=== PATIENT | male | born 1945 | race Caucasian/White ===

== ENCOUNTER 2023-05-13 04:48 | Inpatient (IN) | payer MEDICARE, OTHER, SELFPAY ==
[2023-05-12 21:55] VITALS: BP 154/106
[2023-05-12 22:09] VITALS: BP 164/82
[2023-05-12 22:34] VITALS: BMI 38.2
[2023-05-12 22:34] LABS: % Basophils 0.8 % (0-2); % Immature Granulocytes 3.1 % (0-0.5); % Lymphocytes 29.2 % (20.5-51.1); % Monocytes 9.2 % (1.7-9.3); % Neutrophils 53.7 % (42.2-75.2); Absolute Basophils 0.1 10^3/uL (0-0.2); Absolute Eosinophils 0.4 10^3/uL (0-0.7); Absolute Immature Granulocytes 0.3 10^3/uL (0-0.05); Absolute Monocytes 0.9 10^3/uL (0.1-0.6); Absolute Neutrophils 5.5 10^3/uL (1.4-6.5); Hematocrit 31.4 % (39.0-52.0); Hemoglobin 10.7 g/dL (13.0-18.0); Mean Corp Hgb Conc. 34.1 g/dL (33.0-37.0); Mean Corpuscular Hgb 32.1 pg (27.0-31.0); Mean Corpuscular Volume 94.3 fL (80.0-94.0); Mean Platelet Volume 9.2 fL (7.4-10.4); Nucleated Red Blood Cells % 0 % (-); Platelet Count 396 10^3/uL (130-400); Red Blood Cell Count 3.33 10^6/uL (4.70-6.10); Red Cell Dist. Width 13.4 % (11.5-14.5); White Blood Cell Count 10.2 10^3/uL (4.8-10.8)
--- NOTE | 2023-05-12 22:42 | ED.GENMED ---
History of Present Illness
General
Chief Complaint: Chest Pain
Source: patient
Exam Limitations: none
Time Seen by Provider: 05/12/23 22:10
Travel History
Have you had any contact with someone who has COVID-19?: No
Do you have any symptoms of coronavirus? Fever > 100 degrees, chills, cough, shortness of breath, sore throat, loss of taste or smell, muscle aches, or headache?: No
History of Present Illness
History of Present Illness:
This is a 77 year old male that comes in with c/o chest pain. States that he was getting chest pain across the upper chest but more on the left then the right. State that he had discomfort in both arms but again it was more on the left arm. States
that this started this morning and was on and off all day. States that this happened 3-4 times through the day. Then tonight at 8:15pm he had pain again so he thought he better come in . States that it last maybe 5-10 min. States that he felt
occasionally SOB. Denies any fever, chills, abd pain, nausea, vomiting, diarrhea, headache, dizziness, urinary burning.
Past History
Past History
ED Past Medical History: Cancer (Prostate CA with Radiation), COPD, GERD, HTN, NIDDM and Other (PNA, Hernia, Back pain, )
ED Past Surgical History: Tonsilectomy and Other (Brain Tumor removed, facial reconstruction after dog bite, Hernia repair)
Social History
Tobacco: Former smoker
Alcohol: Occasional
Drug: None
Personal:
Living: alone
Employment: Retired
Family History
Family History: Other (Patient's brother has had angioneurotic edema from IVY inhibitor use.)
Review of Systems
Review of Systems
All Other Systems: ROS reviewed and negative except as documented in HPI and ROS
Constitutional: Reports no symptoms; Denies fever or chills
EENT: Reports no symptoms
Respiratory: Reports trouble breathing; Denies cough
Cardiac: Reports chest pain
ABD/GI: Reports no symptoms; Denies abdominal pain, nausea, vomiting or diarrhea
: Reports no symptoms; Denies dysuria, frequency or urgency
Musculoskeletal: Reports no symptoms
Skin: Reports no symptoms
Neurological: Reports no symptoms; Denies dizzy or headache
Psychiatric: Reports no symptoms
Phy Exam
General Physical Exam
General Presentation: well appearing and no apparent distress
General age: appears stated age
General Skin: warm and dry
General Habitus: elderly
General Mental: alert
General Hydration: appears well hydrated
ENT Exam
ENT Exam: TM's normal, pharynx normal and neck supple
Eye Exam
Eye Exam: EOMI
Cardiovascular Exam
Cardiovascular Exam: regular rate/rhythm and normal peripheral pulses
Pulmonary Exam
Pulmonary Exam: lungs clear, no respiratory distress, no rales, chest non tender, no crackles, no rhonchi, no wheezing and no cough
Gastrointestinal Exam
Gastrointestinal Exam: normal bowel sounds, non tender, soft, no organomegaly, no pulsatile mass, non distended and other (Obese)
Musculoskeletal Exam
Musculoskeletal Exam: full ROM and edema (Slight nonpitting lower leg edema)
Skin Exam
Skin Exam: normal color, warm/dry, no rash and no petechia
Psychiatric Exam
Psychiatric Exam: normal mood/affect
Scores
Heart Score for Chest Pain Patients
STEMI patient?: No
History: Moderately Suspicious
ECG: Normal
Age: >/= 65 years
Risk Factors: 1 or 2 Risk Factors
Troponin: </= Normal Limit
Heart Score for Chest Pain Patients: 4
Heart Score Risk: 20.3% MACE over next 6 weeks
Course
Orders/Labs/Results
Orders:
Orders
05/12/23 21:50
Electrocardiogram (*1) Urgent
Reason for Study: Chest Pain
EKG- Treatment ONCE
05/12/23 22:00
CMP [Comprehensive Metabolic Panel] Urgent
Complete Blood Count/With Diff Urgent
05/12/23 22:27
Troponin I Urgent
05/12/23 22:40
CR Chest - 2 Views Urgent
Comment:
Reason For Exam: cHEST PAIN
05/12/23 22:41
EKG- Treatment ONCE
05/13/23 01:23
Troponin I Urgent
05/13/23 01:25
Electrocardiogram (*1) Urgent
Reason for Study: Chest Pain
Other Reason for Exam: Repeat with Troponin
05/13/23 01:35
Nitroglycerin Sublingual [Nitrostat (Sublingual)] 0.4 mg SL NOW STA
05/13/23 01:40
Aspirin 325 mg PO NOW STA
05/13/23 03:05
Troponin I Urgent
Abnormal Lab Results
05/12/23
22:00
RBC 3.33 L 10^6/uL
(4.70-6.10)
Hgb 10.7 L g/dL
(13.0-18.0)
Hct 31.4 L %
(39.0-52.0)
MCV 94.3 H fL
(80.0-94.0)
MCH 32.1 H pg
(27.0-31.0)
Abs Immat Gran (auto) 0.3 H 10^3/uL
(0-0.05)
Absolute Monos (auto) 0.9 H 10^3/uL
(0.1-0.6)
Immature Gran % 3.1 H %
(0-0.5)
Chloride 109 H mmol/L
(98-107)
Carbon Dioxide 19 L mmol/L
(22-30)
BUN 25 H mg/dl
(9-20)
Creatinine 1.6 H mg/dL
(0.7-1.3)
Glucose 152 H mg/dl
(70-99)
Total Protein 5.9 L g/dl
(6.3-8.2)
05/12/23 22:00
05/12/23 22:00
H/H slightly low. Chloride elevation. carbon dioxide low. Dehydration. Renal insufficiency Glucose nonfasting. Total protein low. Troponin 0.026
Second Troponin 0.032
Third Troponin 0.028
Vital Signs
Initial and Last Documented VS:
Initial Vital Signs
Temp Pulse Resp BP Pulse Ox
97.8 F 103 24 154/106 97
05/12/23 21:55 05/12/23 21:55 05/12/23 21:55 05/12/23 21:55 05/12/23 21:55
Last Documented Vital Signs
Temp Pulse Resp BP Pulse Ox
97.8 F 92 16 143/78 97
05/12/23 21:55 05/13/23 02:15 05/13/23 02:15 05/13/23 02:00 05/12/23 21:55
MDM/Problems Addressed
Differential Diagnosis Includes:
CAD, Angina
MDM/Problems Addressed:
This is a 77 year old male that comes in with c/o chest pain that has been coming and going all day. States that he has no pain now but the last time it was at 8:15pm and this last about 5-10 min.
Will check labs. Troponin and chest x-ray.
Repeat ECG Rate 91, NSR, Left axis. Right BBB, Unchanged from prior. Patient at this time states that his chest discomfort and left arm pain came back. Patient was given nitro and right away he stated that his pain was already gone. Unsure if the
nitro even had any time to work. Second Troponin is pending.
Back into see patient. Explained that his Troponin is continuing to rise. Will patient c/o chest pain and arm pain, will repeat Troponin at 3am and admit patient. Patient can see Loom Inspector in the morning. Hospitalist notified.
Chronic conditions affecting care: COPD and Other (GERD)
Acute Exacerbation and/or Progression of Chronic Illness: COPD
*Radiology
Radiology exam reviewed: preliminary read by ED provider (Chest- No acute process of the chest noted)
*Pulse Oximetry
Patient hypoxic: no
*EKG
Interpreted by ED Provider?: Yes
Heart Rate: 98
Rate: normal
Rhythm: sinus
[place]: left axis deviation
Interval: normal interval
QRS Pattern: right bundle branch block
Ischemia: no ischemia
*Pulverizer Mill Operator Interpretation
Rate: normal
Heart Rate: 97
Rhythm: sinus
*Critical Care Note
Total Time (30-74mins, 75-104mins- exclusive of procedures): Not Applicable
ED Attending Note
-
Portions of this chart may have been created with voice recognition software.� Occasional wrong word or��sound alike� substitutions may have occurred due to the inherent limitations of voice recognition software.
Discharge Plan
Departure
Patient Disposition: Admit
Date of Disposition: 05/13/23
Time of Disposition: 02:10
Admit to: Telemetry
Presentation/result/management discussed w/ accepting MD/DO: Hospitalist
Patient with high blood pressure during this ER visit?: Yes
Condition: Good
Covid-19: Not Applicable
Discharge Problem:
Chest pain
Prescriptions:
No Action
allopurinol 300 MG tablet
300 mg PO DAILY
omeprazole 20 mg Tablet,Delayed Release (Dr/Ec)
20 mg PO DAILY
glimepiride 4 MG tablet
4 mg PO BID
hydrochlorothiazide 12.5 MG capsule
12.5 mg PO DAILY
Hold Instructions: Resume on 09/11/22.
albuterol sulfate [Ventolin HFA] 90 MCG/PUFF HFA aerosol inhaler
2 puff inhalation R Q6HPRN PRN (Reason: sob)
metformin 500 MG tablet extended release 24 hr
500 mg PO BID
irbesartan 300 MG tablet
300 mg PO DAILY
Hold Instructions: Resume on 09/11/22.
amlodipine 10 MG tablet
10 mg PO DAILY
atorvastatin [Lipitor] 20 mg Tablet
20 mg PO QPM
therapeutic multivitamin Tablet
1 tab PO DAILY
montelukast [Singulair] 10 mg Tablet
10 mg PO QPM
Primatene Mist 0.125 mg/actuation Hfa Aerosol Inhaler
1 puff INHALATION R Q4HPRN PRN (Reason: SOB)
ipratropium-albuterol 0.5 mg-3 mg(2.5 mg base)/3 mL Solution For Nebulization
3 ml inhalation R Q4HPRN PRN (Reason: wheezing) Qty: 120 0RF
azithromycin 250 mg Tablet
500 mg PO DAILY Qty: 6 0RF
guaifenesin 600 mg Tablet Extended Release 12hr
600 mg PO Q12 Qty: 30 0RF
prednisone 5 mg tablets,dose pack
5 mg PO DIRECTED Qty: 21 0RF
Referrals:
Sd Barros IV, MD [Family Provider] -
Interventions
Interventions:
*Risk Screen - Suicide Last Done: 05/12/23 21:55
*General Assessment Last Done: 05/12/23 21:55
*Neglect/Abuse Screening Last Done: 05/12/23 21:55
*ED COVID-19 Vaccine History Last Done: 05/12/23 21:55
ED- Cardiac Assessment Last Done: 05/12/23 22:22
[2023-05-12 22:48] LABS: ALT (SGPT) 13 U/L (0-50); AST (SGOT) 17 U/L (17-59); Albumin 3.5 g/dl (3.5-5.0); Alkaline Phosphatase 82 U/L (38-126); Blood Urea Nitrogen 25 mg/dl (9-20); Calcium 8.4 mg/dl (8.4-10.2); Carbon Dioxide 19 mmol/L (22-30); Chloride 109 mmol/L (98-107); Estimated Creatinine Clearance 44 ml/min; Glucose 152 mg/dl (70-99); Potassium 4.5 mmol/L (3.5-5.1); Sodium 136 mmol/L (135-145); Total Bilirubin 0.4 mg/dl (0.2-1.3); Total Protein 5.9 g/dl (6.3-8.2); eGFR 44.38
[2023-05-12 23:00] VITALS: BP 144/71
[2023-05-12 23:00] LABS: Troponin I 0.026 ng/ml
[2023-05-12 23:20] VITALS: BP 144/93
[2023-05-13] VITALS (25 sets, daily range): BP systolic 77–161; BP diastolic 57–112; BMI 35.3
[2023-05-13] MEDS: NITROSTAT (SUBLINGUAL) 0.400000000000000022 MG SL (01:37)
[2023-05-13] MEDS: ASPIRIN 325 MG PO (01:44)
[2023-05-13 01:51] LABS: Troponin I 0.032 ng/ml
[2023-05-13 03:50] LABS: Troponin I 0.028 ng/ml
--- NOTE | 2023-05-13 04:03 | HPS.HSE ---
Family Physician
-
Family Physician: Sd Barros IV, MD
Chief Complaint
-
Chest Pain
History of Present Illness
Patient is a 77y M with PMH significant for hypertension and DM-II who presents to ED complaining of chest pain. Patient states that he first noted some mild L-sided chest pain early Thursday AM. His pain has steadily increased in frequency and
severity throughout the day. Patient states that pain is a 'heaviness' or 'pressure' that is in the center of the chest and radiates to the L including into the LUE. He denies any jaw pain or nausea. He admits to associated SOB. No prior history
of similar symptoms. No prior IL, CVA, etc.
Patient is followed by a Returned Item Clerk at [facility] who he started seeing at age 76 'just because'.
Patient denies any recent medication changes, etc.
He recently had work done in his home (new natural gas boiler installed, old oil tanker removed) and has been cleaning up at home over this past weekend.
In the ED, patient continues to have paroxysms of evident discomfort with tightness in the chest and into the L arm.
Medical History
Past Medical History
Past Medical History: Reports Other
Additional Past Medical History:
Hypertension
DM-II
Obesity
COPD
Gout
GERD
Past Surgical History: Reports Other
Additional Past Surgical History:
Herniorrhaphy
Social History
Tobacco: Former Smoker (Quit smoking 5 years ago. > 50 pack years total use.)
Alcohol: Occasional
Drug: None
Living: Alone
Family History
Family History: Other (Mother: Dementia, Longevity Father: CHF)
Allergies / Home Medications
Allergies reflects when Allergies were last updated in [employer].
Home Medications with original date entered in [employer]
Allergy/Medication List:
Allergies
Allergy/AdvReac Type Severity Reaction Status Date / Time
No Known Allergies Allergy Verified 09/03/22 09:56
Home Medications
allopurinol 300 mg tablet 300 mg PO DAILY Gout 11/11/12
omeprazole 20 mg tablet,delayed release 20 mg PO DAILY Gastrointestinal Issue 11/11/12
amlodipine 10 mg tablet 10 mg PO DAILY Blood Pressure 08/29/17
glimepiride 4 mg tablet 4 mg PO DAILY Diabetes 08/29/17
hydrochlorothiazide 12.5 mg capsule 12.5 mg PO DAILY Blood Pressure 08/29/17
irbesartan 300 mg tablet 300 mg PO DAILY Blood Pressure 08/29/17
metformin 500 mg tablet,extended release 24 hr 500 mg PO BID Diabetes 08/29/17
epinephrine 0.125 mg/actuation aerosol inhaler (Primatene Mist) 1 puff inhalation R Q4HPRN PRN SOB 09/03/22
montelukast 10 mg tablet (Singulair) 10 mg PO QPM Allergies 09/03/22
Review of Systems
-
History Source: Patient
A 12 point ROS was completed and negative except as noted: Yes
Constitutional: Denies Fever or Chills
EENT: Denies Sore Throat
Respiratory: Reports Trouble Breathing; Denies Cough
Cardiac: Reports Chest Pain; Denies Diaphoresis or Palpitations
Abdomen/GI: Denies Abdominal Pain, Nausea, Vomiting or Diarrhea
: Denies Dysuria or Frequency
Musculoskeletal: Reports Joint Pain (Arm pain.)
Neurological: Denies Dizzy or Headache
Psych: Denies Depression or Anxiety
Physical Exam
Vital Signs
Vital Signs
Temp Pulse Resp BP Pulse Ox
97.8 F 92 16 143/78 97
05/12/23 21:55 05/13/23 02:15 05/13/23 02:15 05/13/23 02:00 05/12/23 21:55
Physical Exam
General: Other (77y M in mild distress due to chest pain / LUE pain.)
HEENT: Moist mucous membranes and PERRLA
Respiratory: Clear; No Wheezes, Rales or Rhonchi
Cardiac: S1/S2 and Regular Rhythm; No Murmur
GI: Soft, Non Tender, Non Distended and Normal Bowel Sounds
Musculoskeletal: No Clubbing, No Cyanosis and No Edema
Neuro: AO x 3
Laboratory Results
-
05/12/23 22:00
Laboratory Results
Total Bilirubin 0.4 mg/dl (0.2-1.3) 05/12/23 22:00
AST 17 U/L (17-59) 05/12/23 22:00
ALT 13 U/L (0-50) 05/12/23 22:00
Alkaline Phosphatase 82 U/L (38-126) 05/12/23 22:00
Troponin I 0.028 ng/ml 05/13/23 03:05
Impression/Plan
-
A/P: Patient is a 77y M with PMH significant for HTN and DM-II who presents to ED complaining of chest pain.
Chest Pain
- Admit for further evaluation and treatment.
- Patient with very good story for ACS with chest heaviness into the L arm.
- Multiple risk factors for CAD.
- EKG shows RBBB without obvious ischemia.
- Troponin is non-negative and trending upwards.
- Begin IV heparin and IV NTG and titrate for pain free.
- Cardiology evaluation.
- Continue daily ASA. Add low-dose beta-shandra.
- Hold on initiation of statin for now - patient reports prior intolerance.
- Follow for any new / recurrent symptoms.
Benign Hypertension
- Stable. Hold ARB acutely.
- Begin metoprolol as noted above.
- IV NTG for pain.
- Adjust med regimen as needed for BP control.
DM-II
- Stable. Hold PO med regimen.
- Follow glucose and cover with SSI as needed.
- Update A1C.
COPD without Acute Exacerbation
- No wheezing on exam.
- Patient takes Singulair and uses only Primatene mist as a rescue inhaler.
- Continue Singulair. Albuterol PRN.
Obesity due to excess calories
- Affects all aspects of care including risk of heart disease.
- Encourage healthy diet and increase exercise as tolerated with goal of weight loss.
DVT Prophylaxis: On IV Heparin
Code Status: Full
[2023-05-13] MEDS: NITROGLYCERIN PREMIX 250 IV (04:34)
[2023-05-13] MEDS: HEPARIN 4000 UNITS IV (04:39)
[2023-05-13] MEDS: HEPARIN 25000 UNITS/250 ML IV (04:43)
[2023-05-13 05:01] LABS: Hematocrit 31.8 % (39.0-52.0); Mean Corp Hgb Conc. 34.6 g/dL (33.0-37.0); Mean Corpuscular Hgb 32.4 pg (27.0-31.0); Mean Corpuscular Volume 93.5 fL (80.0-94.0); Mean Platelet Volume 9.1 fL (7.4-10.4); Platelet Count 368 10^3/uL (130-400); Red Cell Dist. Width 13.7 % (11.5-14.5); White Blood Cell Count 10.3 10^3/uL (4.8-10.8)
--- NOTE | 2023-05-13 06:32 | PTCARENOTE ---
received patient from ED into room 2246. Patient ambulated self to bed w/out difficulty. Denies any dizziness. Patient AAOx3, VSS, and sating 99% RA. Tele monitor applied pt SR w/ BBBC. Morning EKG and blood work obtained per order. IV Heparin gtt
infusing at 10ml/hr, and IV nitroglycerin infusing at 5mcg/min. Patient denies any chest pain or discomfort. Patient oriented to room, call donaldson within reach.
[2023-05-13 06:55] LABS: Troponin I 0.034 ng/ml
[2023-05-13 07:11] LABS: Glucose - Point of Care 113 mg/dl (70-99)
[2023-05-13 07:16] LABS: ALT (SGPT) 12 U/L (0-50); AST (SGOT) 19 U/L (17-59); Alkaline Phosphatase 80 U/L (38-126); Blood Urea Nitrogen 27 mg/dl (9-20); Calcium 8.5 mg/dl (8.4-10.2); Carbon Dioxide 22 mmol/L (22-30); Chloride 106 mmol/L (98-107); Direct Bilirubin 0.5 mg/dl (0.0-0.4); Estimated Creatinine Clearance 45 ml/min; Glucose 117 mg/dl (70-99); HDL Cholesterol 55 mg/dl; LDL Cholesterol, Calculated 111 mg/dl; Magnesium 1.5 mg/dl (1.6-2.3); Sodium 138 mmol/L (135-145); Total Bilirubin 0.5 mg/dl (0.2-1.3); Total Cholesterol 185 mg/dl (50-199); Total Protein 5.3 g/dl (6.3-8.2); Triglyceride 96 mg/dl (10-149); Very Low Density Lipoprotein 19 mg/dl (0-30); eGFR 44.38
[2023-05-13] MEDS: NOVOLOG FLEXPEN-LOW RESISTANCE SC ×3 (07:55→17:46)
[2023-05-13] MEDS: TOPROL XL 12.5 MG PO ×2 (07:55→20:43)
[2023-05-13] MEDS: PROTONIX 40 MG PO (07:55)
[2023-05-13] MEDS: ZYLOPRIM 300 MG PO (07:55)
--- NOTE | 2023-05-13 08:53 | CON.CAR ---
Addendum entered and electronically signed by Xiomara Edwards MD 05/13/23 10:11:
I saw and examined the patient.
The Language Tutor's note was reviewed and I agree with the note.
Comment: Patient presents with chest pain which sounds typical for angina. He has cardiovascular risk factors. Currently on heparin and nitrates. We discussed at great length coronary artery disease and proceeding with cardiac catheterization.
He has not let his family know that he is currently in the hospital and he will do so. He is considering proceeding with cardiac catheterization and we will check back today. If he is agreeable likely proceed tomorrow. Continue to modify
cardiovascular risk factors.
-Cardiac catheterization if agreeable tomorrow
-Continue IV nitrates and heparin
-If not agreeable for cardiac catheterization would transition to oral antianginal regimen
-Await lipids and start lipid-lowering
-Echo pending
-Renal insufficiency noted
-Blood pressure mildly elevated. Agree with beta-shandra. Hold irbesartan. Resume half dose of amlodipine and follow.
Original Note:
Consultation
Consultation Request
Date/Time Consultation Requested: 05/13/23 at 0520
Date/Time Consultation Performed: 05/13/23 at 0740
Requesting Provider: Dr. Holliday
Performing Provider: Dr. Xiomara Edwards
Reason for Consultation: Chest pain
Medical History
-
History of Present Illness:
Patient came to [facility] last night with chest pain and cardiology has been consulted. Patient describes chest pain at rest starting yesterday. Pain is substernal and radiates to his left arm. Pain lasted 5 minutes and resolved without specific
intervention. Pain recurred 2 hours later and lasted 10 minutes before again resolving. Pain recurred again hours later and then lasted 15 minutes. Patient says that an episode late last night was then worst he experienced all day and lasted for
close to an hour so he asked his neighbor to drive him to [facility]. Pain relieved with NTG SL x1 in the ER. Pain recurred an hour later and he was started on a Nitro gtt and pain has not recurred since then. Patient was also started on a Heparin gtt.
Patient reports following with a commander internal affairs associated with [facility]. Patient says that he initially saw cardiology for pre-op cataract clearance for an abnormal ECG about 3 years ago and has continued with every 6 months visits since then, but
has never had chest pain or a stress test.
PMH:
HTN
DM 2
COPD
Obese, BMI 35.3
Past Medical History
Past Medical History: Other (in HPI)
Past Surgical History: Tonsilectomy and Other (hernia repair, brain tumor resection unknown date)
Social History
Tobacco: Former Smoker
Alcohol: Occasional
Personal:
Living: Alone
Family History
Family History: Hypertension
Allergies / Home Medications
Allergy/AdvReac Type Severity Reaction Status Date / Time
No Known Allergies Allergy Verified 09/03/22 09:56
Medication Instructions Recorded Confirmed Type
allopurinol 300 mg tablet 300 mg PO DAILY Gout 11/11/12 05/13/23 History
omeprazole 20 mg tablet,delayed 20 mg PO DAILY Gastrointestinal 11/11/12 05/13/23 History
release Issue
amlodipine 10 mg tablet 10 mg PO DAILY Blood Pressure 08/29/17 05/13/23 History
glimepiride 4 mg tablet 4 mg PO DAILY Diabetes 08/29/17 05/13/23 History
hydrochlorothiazide 12.5 mg capsule 12.5 mg PO DAILY Blood Pressure 08/29/17 05/13/23 History
irbesartan 300 mg tablet 300 mg PO DAILY Blood Pressure 08/29/17 05/13/23 History
metformin 500 mg tablet,extended 500 mg PO BID Diabetes 08/29/17 05/13/23 History
release 24 hr
epinephrine 0.125 mg/actuation 1 puff inhalation R Q4HPRN PRN SOB 09/03/22 05/13/23 History
aerosol inhaler (Primatene Mist)
montelukast 10 mg tablet 10 mg PO QPM Allergies 09/03/22 05/13/23 History
(Singulair)
Review of Systems
-
History Source: Patient
All other systems: Negative unless noted
Physical Exam
Vital Signs
Temp Pulse Resp BP Pulse Ox
98 F 96 18 146/83 99
05/13/23 07:06 05/13/23 07:06 05/13/23 07:06 05/13/23 05:23 05/13/23 07:06
GEN: NAD. AAOx3
HEENT: EOMI, MMM
LUNGS: CTA B/L, no wheezes or rales
CV: Reg, S1/S2, no murmur
ABD: soft, BS+, NT, ND
EXT: Trace B/L LE edema. No clubbing, cyanosis or lesions B/L
NEURO: Gross non-focal
SKIN: Warm, dry and pink. No rash
Lab Results
05/13/23 06:00
05/13/23 06:14
Troponin I 0.034 ng/ml 05/13/23 06:14
Impression / Plan
-
PCP: Dr. Sd Barros
Cardiology: Affiliated with [facility], but he cannot recall the name
Impression:
Chest pain, [place]
Detectable, but normal Troponin levels serially
Abnormal ECG with baseline RBBB and inferior ST changes
HTN
DM 2
COPD
Obese, BMI 35.3
Echo 05/13/23: Study pending
Plan:
-Patient came to [facility] last night with chest pain and cardiology has been consulted. Patient describes chest pain at rest starting yesterday. Pain is substernal and radiates to his left arm. Pain lasted 5 minutes and resolved without specific
intervention. Pain recurred 2 hours later and lasted 10 minutes before again resolving. Pain recurred again hours later and then lasted 15 minutes. Patient says that an episode late last night was then worst he experienced all day and lasted for
close to an hour so he asked his neighbor to drive him to [facility]. Pain relieved with NTG SL x1 in the ER. Pain recurred an hour later and he was started on a Nitro gtt and pain has not recurred since then. Patient was also started on a Heparin gtt.
Patient reports following with a commander internal affairs associated with [facility]. Patient says that he initially saw cardiology for pre-op cataract clearance for an abnormal ECG about 3 years ago and has continued with every 6 months visits since then, but
has never had chest pain or a stress test.
-Patient describing [place] pattern and has a h/o HTN, DM 2 and former smoker. Talked with patient about risk factors for CAD and concerning chest pain story and he is agreeable to cardiac cath today.
-ECG reviewed by me with baseline RBBB and inferior ST changes.
-Renewed Heparin gtt and Nitro gtt. Patient is pain free.
-Check echo
-Continue to trend Troponin
-Check CVE
-Start atorvastatin 40 mg daily
-Patient was not taking an aspirin prior to admission, but this is now ordered
[2023-05-13 09:33] LABS: Glycohemoglobin (HgbA1c) 6.9 % (4.0-5.6)
--- NOTE | 2023-05-13 09:37 | W.PN.HOSP.TC ---
Today's Communication/Plan
-
see A/P
Assessment / Plan
Assessment / Plan
Patient is a 77y M with PMH significant for hypertension and DM-II who presented to ED complaining of chest pain.�Patient states that he first noted some mild L-sided chest pain early Thursday AM.� His pain has steadily increased in frequency and
severity throughout the day. Patient states that pain is a 'heaviness' or 'pressure' that is in the center of the chest and radiates to the L including into the LUE. He denies any jaw pain or nausea.�He admits to associated SOB.� No prior history of
similar symptoms.� No prior [place], CVA, etc.
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
Patient denies any recent medication changes, etc.
He recently had work done in his home (new natural gas boiler installed, old oil tanker removed) and has been cleaning up at home over this past weekend.
In the ED, patient continues to have paroxysms of evident discomfort with tightness in the chest and into the L arm.
A/P:
# Chest Pain/chest heaviness into the L arm, admit to r/o ACS
Multiple risk factors for CAD.
EKG shows RBBB without obvious ischemia.
Troponin is non-negative and trending upwards.
Check echo
Cont IV heparin and IV NTG
Cardiology evaluation.
Continue daily ASA.� Added low-dose beta-shandra Toprol 12.5 mg BID
Lipitor started by card
Follow for any new / recurrent symptoms.
# CKD stage 3
Follow SCr
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
# Benign Hypertension�- Stable.�
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
Begin metoprolol as noted above.
IV NTG for pain.
Adjust med regimen as needed for BP control.
# DM-II- Stable.�
Hold PO med regimen.
Follow glucose and cover with SSI as needed.
Update A1C.
# COPD without Acute Exacerbation
No wheezing on exam.
Patient takes Singulair and uses only Primatene mist as a rescue inhaler.
Continue Singulair.� Albuterol PRN.
# Obesity due to excess calories
Affects all aspects of care including risk of heart disease.
Encourage healthy diet and increase exercise as tolerated with goal of weight loss.
DVT Prophylaxis:� On IV Heparin
Code Status:� Full
called brother to update, call not answered
Anticipated Discharge: 24 - 48 hours
Subjective/Interval History
-
Date of Service: May 13, 2023
Objective Data
-
Labs:
Laboratory Results
05/12/23 05/13/23 05/13/23
22:00 04:49 06:00
WBC 10.2 10.3 Cancelled
Hgb 10.7 L 11.0 L Cancelled
Hct 31.4 L 31.8 L Cancelled
Plt Count 396 368 Cancelled
APTT 61.0 H
Sodium 136
Potassium 4.5
Chloride 109 H
Carbon Dioxide 19 L
BUN 25 H
Creatinine 1.6 H
Glucose 152 H
Calcium 8.4
Total Bilirubin 0.4
AST 17
ALT 13
Alkaline Phosphatase 82
05/13/23 05/13/23
06:14 10:45
WBC
Hgb
Hct
Plt Count
APTT Pending
Sodium 138
Potassium 4.0
Chloride 106
Carbon Dioxide 22
BUN 27 H
Creatinine 1.6 H
Glucose 117 H
Calcium 8.5
Total Bilirubin 0.5
AST 19
ALT 12
Alkaline Phosphatase 80
Vital Signs:
Vital Signs
Temp Pulse Resp BP Pulse Ox
36.6 C 96 18 146/83 99
05/13/23 07:06 05/13/23 07:06 05/13/23 07:06 05/13/23 05:23 05/13/23 07:06
Review of Systems
-
All other systems: Reviewed and negative
Cardiac: Denies Chest Pain (much resolved )
Physical Exam
-
General: Well Developed, Well Nourished, No Apparent Distress, Comfortable, Conversant and Obese; Negative Respiratory Distress
HEENT: Normocephalic, Atraumatic, Nose Appears Normal and Ears Appear Normal; Negative Oxygen
Respiratory: Clear to Auscultation and Non Labored Respirations; Negative Accessory Resp Muscle Use
Cardiac: Regular Rhythm and S1/S2
GI: Soft, Nontender, Nondistended and Normal Bowel Sounds
Skin: Warm and Dry
Neuro: Awake, Alert, Oriented and AO x 3
Psych: Calm and Intact Judgement/Insight
Data Reviewed
-
Labs: Labs Reviewed by me
[2023-05-13 11:47] LABS: APTT 38.2 Sec (23.4-35.0)
[2023-05-13 12:00] LABS: Troponin I 0.075 ng/ml
[2023-05-13 12:15] LABS: Glucose - Point of Care 111 mg/dl (70-99)
--- NOTE | 2023-05-13 12:32 | W.PN.UPDATE ---
Addendum entered and electronically signed by Lexis Santacruz PA-C 05/13/23 17:04:
Called back to see patient for another episode of chest pain. He was seated in a chair when pain started. Nursing increased Nitro gtt from 10 mcg to 20 mcg. Pain resolved quickly. Patient now in bed. BP 139/51. MATTHEW earlier that was relieved by
Tylenol. Plan is for cath today.
Original Note:
Update Note
Progress Note Update
CTSP for chest pain. Patient was seated in chair with Nitro gtt running at 5 when he started with chest pain. This was his first recurrence of chest pain following initiation of Nitro gtt in ER. Nitro gtt increased to 10 and patient pain free.
Troponin trended up from 0.034 to 0.075. Talked with patient, his son and daughter in law. Reviewed admission thus far and concerns for [facility]. Patient now says that he is agreeable to cath. Pain free at present on Nitro gtt at 10 and Heparin gtt. Will
add to cath schedule. Spent 31 minutes reviewing chart, talking with family and coordinating ongoing care.
--- NOTE | 2023-05-13 12:53 | PTCARENOTE ---
Pt c/o /10 heaviness in his chest, BP 153/77, NTG drip increased to 10 mcg/min. Pt pain lasted only briefly. Lexislang Santacruz aware.
[2023-05-13] MEDS: LOW STRENGTH ASPIRIN 81 MG PO (12:59)
[2023-05-13] MEDS: NORVASC 5 MG PO (13:00)
--- NOTE | 2023-05-13 13:31 | CM ---
Chart reviewed. Patient is waiting on a LH. Patient is independent of ADLS, lives alone in a 2 [address], 3 MARIE, 0 DME. Patient not current with VN, but is interested. I will place a referral to [facility]. Plan is for the patient to return home with
VN. CM to follow
[2023-05-13] MEDS: TYLENOL 650 MG PO (14:32)
[2023-05-13 17:08] LABS: Glucose - Point of Care 118 mg/dl (70-99)
[2023-05-13 17:52] LABS: ACT-LR - POC 200 Seconds (116-155)
[2023-05-13 17:59] LABS: ACT-LR - POC 269 Seconds (116-155)
[2023-05-13 18:17] LABS: ACT-LR - POC 287 Seconds (116-155)
--- NOTE | 2023-05-13 18:57 | ITS.CL.CATH ---
[facility] - Catheterization
Cardiac Catheterization
Procedure Report:
LEFT HEART CATHETERIZATION AND CORONARY INTERVENTION
Date of Procedure: May 13, 2023
Referring: Xiomara Edwards
PROCEDURES:
1. Left heart catheterization, coronary angiogram.
2. Ultrasound-guided access.
3. Successful percutaneous coronary intervention of the 80% distal RCA stenosis with a 4.0 x 23 mm Xience pasquale point drug-eluting stent, postdilated with a 4.5 x 20 mm NC balloon at 18 zion with an excellent angiographic result.
INDICATION: NSTEMI
ACCESS: Right radial artery, 6 Bruneian sheath, under ultrasound guidance
HEMODYNAMICS : (mmHg)
AO (s/d) : 127/76
LV (s/d) : 126/9
LVEDP : 12
CORONARY FINDINGS
DOMINANCE: Right
LEFT MAIN: Left main artery is a large-caliber vessel which gives rise to a left anterior descending artery and the left circumflex artery. There is minimal luminal irregularities.
LEFT ANTERIOR DESCENDING: The left into descending artery is a medium to large caliber vessel which gives rise to 1 major diagonal branch. There is 30 to 40% eccentric mid LAD stenosis at the level of the takeoff of a branching diagonal.
Otherwise, there is mild diffuse atherosclerotic plaque.
CIRCUMFLEX: The left circumflex artery is a medium caliber vessel which gives rise to 2 small to medium caliber obtuse marginal branches. There is 20% ostial left circumflex stenosis and otherwise minimal luminal irregularities.
RIGHT CORONARY ARTERY: The right coronary artery is a large-caliber, dominant vessel which gives rise to the right posterior descending artery and the right posterolateral system. There is a smooth tubular 80% distal RCA stenosis which was thought
to be the culprit for presenting NSTEMI.
CORONARY INTERVENTION: Decision was made to move forward with percutaneous intervention of distal RCA stenosis. Additional heparin was given to maintain a therapeutic ACT throughout the case. A 6 Bruneian JR4 guide catheter was utilized to
selectively engage with the RCA. A 190 cm 0.14' BMW coronary wire was successfully advanced across the distal RCA stenosis into the large RPL branch. The lesion was predilated using a 3.5 x 12 mm Trek semi-compliant balloon at 14 zion with full
expansion. The lesion was subsequently stented using a 4.0 x 23 mm Xience pasquale point drug-eluting stent and postdilated using a 4.5 x 20 mm NC trek balloon at 18 zion with excellent angiographic result and LUCY-3 flow into the distal branches. 0%
residual stenosis was noted. Patient was loaded with 180 mg of Brilinta at the end of the case. No acute complications.
RADIATION SUMMARY: Fluoro Time (min): 11.1, Dose (mGy): 646.14, DAP (Gy.cm2) : 58.7
Closure Device: Vascular band over right radial artery, 11 cc of air.
CONCLUSIONS
1. Successful percutaneous coronary intervention of the 80% distal RCA stenosis with a 4.0 x 23 mm Xience pasquale point drug-eluting stent, postdilated with a 4.5 x 20 mm NC balloon at 18 zion with an excellent angiographic result.
2. Otherwise nonobstructive coronary artery disease.
3. Normal LVEDP.
RECOMMENDATIONS
1. Uninterrupted dual antiplatelet therapy with daily baby aspirin and Brilinta 90 mg twice daily along with a high intensity statin and beta-shandra as tolerated in the setting of acute coronary syndrome.
2. Aggressive management of cardiovascular risk factors.
3. Wean radial band per protocol.
4. Referral for outpatient cardiac rehab.
Copy to: Xiomara Edwards
Cuca Fountain MD, [facility], [facility]
--- NOTE | 2023-05-13 19:38 | PTCARENOTE ---
Addendum entered by Merced Conway RN 05/13/23 19:40:
Pt c/o CP at 1630
Original Note:
Pt c/o 10/20 chest heaviness again, EKG done, NTG increased to 20mcg. Lexis Santacruz aware and came to see Pt. Pt awaiting cardiac cath. His pain was gone after 10 minutes.
[2023-05-13] MEDS: SINGULAIR 10 MG PO (20:43)
[2023-05-13] MEDS: LIPITOR 40 MG PO (20:43)
[2023-05-13 21:35] LABS: Glucose - Point of Care 201 mg/dl (70-99)
[2023-05-14] VITALS (7 sets, daily range): BP systolic 131–147; BP diastolic 70–87; PULSE 106–110; O2SAT 96
--- NOTE | 2023-05-14 04:49 | PTCARENOTE ---
Pt without CP complaints this shift- R radial dressing CDI+ radial pulse. SR/ST BBB on the monitor. Pt @ times- complaining of SOB- SPO2 ranged from 98-100% on RA. b/l lung sounds diminished- Pt reports ' he has COPD, it is probably just my
anxiety'. PRN NEB treatment offered and pt made aware he can ask if he feels he needs it- he declines at this time. call donaldson within reach- pt ambulating the room as a self.
[2023-05-14 05:12] LABS: Hematocrit 31.5 % (39.0-52.0); Hemoglobin 10.6 g/dL (13.0-18.0); Mean Corp Hgb Conc. 33.7 g/dL (33.0-37.0); Mean Corpuscular Hgb 32.4 pg (27.0-31.0); Mean Corpuscular Volume 96.3 fL (80.0-94.0); Mean Platelet Volume 9.4 fL (7.4-10.4); Platelet Count 383 10^3/uL (130-400); Red Blood Cell Count 3.27 10^6/uL (4.70-6.10); Red Cell Dist. Width 13.3 % (11.5-14.5); White Blood Cell Count 10.3 10^3/uL (4.8-10.8)
[2023-05-14 05:32] LABS: Blood Urea Nitrogen 24 mg/dl (9-20); Calcium 9.1 mg/dl (8.4-10.2); Carbon Dioxide 23 mmol/L (22-30); Chloride 105 mmol/L (98-107); Estimated Creatinine Clearance 40 ml/min; Glucose 124 mg/dl (70-99); Magnesium 1.5 mg/dl (1.6-2.3); Potassium 4.7 mmol/L (3.5-5.1); Sodium 136 mmol/L (135-145); eGFR 38.53
[2023-05-14 07:48] LABS: Glucose - Point of Care 157 mg/dl (70-99)
[2023-05-14] MEDS: BRILINTA 90 MG PO (08:34)
[2023-05-14] MEDS: LOW STRENGTH ASPIRIN 81 MG PO (08:34)
[2023-05-14] MEDS: TOPROL XL 12.5 MG PO (08:34)
[2023-05-14] MEDS: NORVASC 5 MG PO (08:35)
[2023-05-14] MEDS: PROTONIX 40 MG PO (08:35)
[2023-05-14] MEDS: ZYLOPRIM 300 MG PO (08:35)
--- NOTE | 2023-05-14 08:39 | W.PN.HOSP.TC ---
Addendum entered and electronically signed by Marilyn Holliday MD 05/14/23 14:44:
total DC time 35 min
Original Note:
Today's Communication/Plan
-
see A/P
Assessment / Plan
Assessment / Plan
Patient is a 77y M with PMH significant for hypertension and DM-II who presented to ED complaining of chest pain.�Patient states that he first noted some mild L-sided chest pain early Thursday.� His pain has steadily increased in frequency and
severity throughout the day. Patient states that pain is a 'heaviness' or 'pressure' that is in the center of the chest and radiates to the L including into the LUE. He denies any jaw pain or nausea.�He admits to associated SOB.� No prior history of
similar symptoms.� No prior [place], CVA, etc.
Patient is followed by a Club Lounge Attendant at [place] who he started seeing at age 76 'just because'.
Patient denies any recent medication changes, etc.
He recently had work done in his home (new natural gas boiler installed, old oil tanker removed) and has been cleaning up at home over this past weekend.
In the ED, patient continues to have paroxysms of evident discomfort with tightness in the chest and into the L arm.
A/P:
# Chest Pain/chest heaviness due to ACS
EKG shows RBBB without obvious ischemia.
Troponin is non-negative and trending upwards.
Echo unrevealing: EF 55-60%.�Normal diastolic function.�
s/p IV heparin and IV NTG
s/p cath 05/13: noted 80% distal RCA stenosis s/p PCI
Cont DAPT aspirin and Brilinta
Cont high intensity statin Lipitor
Cont newly added beta-shandra Toprol 12.5 mg BID
# CKD stage 3
Follow SCr
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
# Benign Hypertension�- Stable.�
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
Started metoprolol as noted above.
Adjust med regimen as needed for BP control.
# DM-II- Stable.�
Hold PO med regimen.
Follow glucose and cover with SSI as needed.
A1C 6.9%
# COPD without Acute Exacerbation
No wheezing on exam.
Patient takes Singulair and uses only Primatene mist as a rescue inhaler.
Continue Singulair.�Albuterol PRN.
# Obesity due to excess calories
Affects all aspects of care including risk of heart disease.
Encourage healthy diet and increase exercise as tolerated with goal of weight loss.
# Hypomagnesemia
replete
DVT Prophylaxis:�
Code Status:� Full
dw family at bedside
Anticipated Discharge: Within 24 hours
Subjective/Interval History
-
Date of Service: May 14, 2023
Objective Data
-
Labs:
Laboratory Results
05/14/23
04:34
WBC 10.3
Hgb 10.6 L
Hct 31.5 L
Plt Count 383
Sodium 136
Potassium 4.7
Chloride 105
Carbon Dioxide 23
BUN 24 H
Creatinine 1.8 H
Glucose 124 H
Calcium 9.1
Vital Signs:
Vital Signs
Temp Pulse Resp BP Pulse Ox
36.8 C 103 20 132/74 96
05/14/23 07:40 05/14/23 04:28 05/14/23 07:40 05/14/23 04:28 05/14/23 07:40
Review of Systems
-
All other systems: Reviewed and negative
Cardiac: Denies Chest Pain
Physical Exam
-
General: Well Developed, Well Nourished, No Apparent Distress, Comfortable, Conversant and Obese; Negative Respiratory Distress
HEENT: Normocephalic, Atraumatic, Nose Appears Normal and Ears Appear Normal; Negative Oxygen
Respiratory: Clear to Auscultation and Non Labored Respirations; Negative Accessory Resp Muscle Use
Cardiac: Regular Rhythm and S1/S2
GI: Soft, Nontender, Nondistended and Normal Bowel Sounds
Skin: Warm and Dry
Neuro: Awake, Alert, Oriented and AO x 3
Psych: Calm and Intact Judgement/Insight
Data Reviewed
-
Labs: Labs Reviewed by me
[2023-05-14] MEDS: NOVOLOG FLEXPEN-LOW RESISTANCE 1 UNITS SC (09:11)
[2023-05-14] MEDS: MAGNESIUM SULFATE 50 IV (09:12)
--- NOTE | 2023-05-14 10:07 | PTOTSP ---
pt currently requires supervision to no assistance to complete simple ADLs, functional transfers, ambulation. pt reports sons, family will assist PRN with IADLs. encouraged pt to attend cardiac rehab as well. pt agreeable. no acute OT needs
identified at this time, will sign off.
--- NOTE | 2023-05-14 11:12 | W.PN.CARDCBS ---
Addendum entered and electronically signed by Brandin Tripathi MD 05/14/23 14:56:
I saw and examined the patient.
The Scroll Shear Operator's note was reviewed and I agree with the note.
Comment: Briefly, 77-year-old man presenting with chest discomfort found to have NSTEMI and underwent PCI to the distal RCA
He is resting comfortably today with no further chest discomfort
Physical exam without evidence of mechanical complication of ID or decompensated heart failure
Right radial cath site clean dry intact, RUE neurovascularly intact
Telemetry unremarkable
Brilinta is unaffordable, transition to Plavix with a load this afternoon and continue 75 mg daily starting tomorrow
Continue aspirin, high intensity statin, beta-shandra
Eventual cardiac rehab
Outpatient cardiology follow-up arranged
Original Note:
Today's Communication / Plan
-
Change Brilinta to Plavix
Change omeprazole to Protonix
Hold irbesartan and if stable outpatient labs in a week
HCTZ has been stopped
Impression / Plan
-
PCP: Dr. Sd Barros
Cardiology: Affiliated with [facility], but he cannot recall the name
Impression:
Chest pain, USA on admission
CAD
s/p NSTEMI Troponin up to 0.075 prior to PCI 05/13/23
s/p 4 mm Xience ERWIN to distal RCA lesions 05/13/23
Abnormal ECG with baseline RBBB and inferior ST changes
HTN
DM 2
COPD
Obese, BMI 35.3
Echo 05/13/23: EF 55-60%, no WMA, normal RV size and function, mild MR, no aortic regurgitation
Plan:
-Pain free since RCA PCI 05/13/23 evening. Patient is tolerating aspirin and Brilinta, but has learned that Brilinta co-pay following deductible being met will be $79 and this is understandably cost prohibitive. Will transition to Plavix 75 mg
daily starting 05/15/23 AM and give a dose of Plavix 600 mg tonight prior to discharge.
-EF preserved by echo, Troponin up to 0.075 prior to PCI and no VT on tele. Overall patient feels well and is asking for d/c to home.
-Cardiac rehab consult
-New to Toprol XL 12.5 mg BID. Outpatient dose of irbesartan 300 mg daily was held on 05/13/23. Cre is 1.8. Will restart and check BMP in 1 week as an outpatient.
-Outpatient dose of HCTZ has been held since admission and will continue to hold upon discharge.
-LDL 111. New to atorvastatin 40 mg daily. Patient describes joint pain with previous statin use, but is going to take statin upon discharge and can re-evaluate at office follow up.
-Patient can be discharged to home and cardiology follow up being arranged.
HPI: Patient came to [facility] last night with chest pain and cardiology has been consulted. Patient describes chest pain at rest starting yesterday. Pain is substernal and radiates to his left arm. Pain lasted 5 minutes and resolved without specific
intervention. Pain recurred 2 hours later and lasted 10 minutes before again resolving. Pain recurred again hours later and then lasted 15 minutes. Patient says that an episode late last night was then worst he experienced all day and lasted for
close to an hour so he asked his neighbor to drive him to [facility]. Pain relieved with NTG SL x1 in the ER. Pain recurred an hour later and he was started on a Nitro gtt and pain has not recurred since then. Patient was also started on a Heparin gtt.
Patient reports following with a building and grounds supervisor associated with [facility]. Patient says that he initially saw cardiology for pre-op cataract clearance for an abnormal ECG about 3 years ago and has continued with every 6 months visits since then, but
has never had chest pain or a stress test.
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
Subjective
Date of Service: May 14, 2023
He feels well and wants to go home
Objective
Labs:
05/14/23 04:34
05/14/23 04:34
Labs
Hgb 10.6 g/dL (13.0-18.0) L 05/14/23 04:34
Hct 31.5 % (39.0-52.0) L 05/14/23 04:34
Plt Count 383 10^3/uL (130-400) 05/14/23 04:34
APTT 38.2 Sec (23.4-35.0) H 05/13/23 11:06
Sodium 136 mmol/L (135-145) 05/14/23 04:34
Potassium 4.7 mmol/L (3.5-5.1) 05/14/23 04:34
BUN 24 mg/dl (9-20) H 05/14/23 04:34
Creatinine 1.8 mg/dL (0.7-1.3) H 05/14/23 04:34
Glucose 124 mg/dl (70-99) H 05/14/23 04:34
Troponins
05/12/23 05/13/23 05/13/23
22:27 01:23 03:05
Troponin I 0.026 0.032 0.028
05/13/23 05/13/23 05/13/23
06:14 11:06 17:20
Troponin I 0.034 0.075 H* D Cancelled
Vital Signs and I&O:
Vital Signs
Temp Pulse Resp BP Pulse Ox
98.2 F 109 20 139/83 95
05/14/23 07:40 05/14/23 10:00 05/14/23 07:40 05/14/23 09:36 05/14/23 07:43
Vital Signs
Temp Pulse Resp BP Pulse Ox
98.2 F 109 20 139/83 95
05/14/23 07:40 05/14/23 10:00 05/14/23 07:40 05/14/23 09:36 05/14/23 07:43
Physical Exam
Physical Exam
GEN: NAD. AAOx3
HEENT: EOMI
LUNGS: CTA B/L
CV: Reg
ABD: soft
EXT: No edema B/L
NEURO: Gross non-focal
SKIN: Warm, dry and pink. No rash
--- NOTE | 2023-05-14 11:20 | CM ---
Chart review. Patient is independent of ADLS, lives alone in a [address], 3 MARIE, 0 DME. Referral sent to [facility]. Plan is for the patient to return home with [facility] GRISSOM CM to follow
[2023-05-14 12:46] LABS: Glucose - Point of Care 210 mg/dl (70-99)
[2023-05-14] MEDS: NOVOLOG FLEXPEN-LOW RESISTANCE 2 UNITS SC (13:11)
--- NOTE | 2023-05-14 14:34 | W.DCSUMMARY ---
Discharge Summary
Discharge Data
Date of Admission: 05/13/23
Date of Discharge: 05/14/23
-
Pending Results: No
Hospital Course
Principal Diagnosis:
Acute chest syndrome (ACS)
Chronic Diagnoses:�
Essential hypertension
Chronic kidney disease stage 3
Diabetes type 2
COPD without Acute Exacerbation
Obesity due to excess calories
Consultations:�
Cardiology
Procedures:�
Cardiac catheterization 05/13/23: noted 80% distal RCA stenosis s/p PCI.
Clinical course:�
This is a 77 year old male with past medical history as stated above, who presented with chest pain.
Problem 1:
Chest Pain/chest heaviness due to ACS.
His EKG shows RBBB without obvious ischemia. His troponin peaked at 0.075.
His Echo was unrevealing: EF 55-60%.�Normal diastolic function.�
He was treated with IV heparin and IV NTG, and underwent cardiac cath 05/13, which noted 80% distal RCA stenosis s/p PCI.
He can continue to take DAPT aspirin and Plavix going forward, as well as high intensity statin Lipitor 40 mg daily.
He can continue with the newly added beta-shandra Toprol 12.5 mg BID.
His prior to admission metformin and irbesartan were put on hold until further direction by outpatient well shooter/PCP due to his CKD status.
As for the rest of his medical problems, they were stable during his hospital stay.
Discharge Plan
-
Patient Disposition: Home with Home Care
Discharge Diagnosis/Procedures: Chest pain due to coronary artery disease (80% distal Right Coronary Artery stenosis) status post stent placement
Condition: Fair
Diet: As tolerated, Low Cholesterol and Low Sodium
Activity: As tolerated
Driving Restrictions: No driving for 24 hours
Bathing Restrictions: OK to Shower
Other Services: Cardiac Rehab
Stop these medications:: Hydrochlorothiazide (HCTZ), irbersartan, omeprazole (Prilosec)
Activity Restrictions/Additional Instructions:
Continue to take Aspirin and Plavix (clopidogrel) going forward.
You were started with Lipitor (atorvastatin), continue to take going forward.
You were started with Toprol XL (metoprolol succinate) 12.5 mg twice daily, continue to take going forward.
Omeprazole (Prilosec) is being replaced with pantoprazole (Protonix) due to an interaction between Plavix (clopidogrel) and omeprazole
Stand Alone Forms: DC Instructions- Cath/EP Lab
Referrals:
[facility] [Outside]
Sd Barros IV, MD [Family Provider] - in less than 1 week
Xiomara Edwards MD [Active] - 06/03/23 10:40 am (You have an appt to see Dr. Xiomara Edwards's physician recruitment and outreach assistant, Anna, at the [place] office on 06/03/23 at 10:40 AM. Please call [phone] if you need to reschedule.)
Prescriptions:
New
pantoprazole 40 mg Tablet,Delayed Release (Dr/Ec)
40 mg PO DAILY Qty: 30 11RF
atorvastatin 40 mg Tablet
40 mg PO QPM Qty: 30 11RF
aspirin [Children's Aspirin] 81 mg Tablet,Chewable
81 mg PO DAILY Qty: 30 0RF
metoprolol succinate 25 mg Tablet Extended Release 24 Hr
12.5 mg PO BID Qty: 60 11RF
clopidogrel [Plavix] 75 mg tablet
75 mg PO DAILY Qty: 30 11RF
Continued
allopurinol 300 MG tablet
300 mg PO DAILY
glimepiride 4 MG tablet
4 mg PO DAILY
amlodipine 10 MG tablet
10 mg PO DAILY
montelukast [Singulair] 10 mg Tablet
10 mg PO QPM
Primatene Mist 0.125 mg/actuation Hfa Aerosol Inhaler
1 puff INHALATION R Q4HPRN PRN (Reason: SOB)
Held
metformin 500 MG tablet extended release 24 hr
500 mg PO BID
Hold Instructions: Resume on 05/15/23. Resume your usual dose of metformin on 05/15/23.
irbesartan 300 MG tablet
300 mg PO DAILY
Hold Instructions: Resume on 05/21/23. Pending the results of your blood work in 1 week the cardiology office will restart your irbesartan.
Discontinued
omeprazole 20 mg Tablet,Delayed Release (Dr/Ec)
20 mg PO DAILY
hydrochlorothiazide 12.5 MG capsule
12.5 mg PO DAILY
Hold Instructions: Resume on 09/11/22.
Discharge Orders:
Discharge Patient (As Directed); Ordered 05/14/23
Ordered By: Marilyn Holliday
Care Plan Goals
Care Plan Goals:
Problem: Readiness for enhanced knowledge related to diagnosis and treatment plan
Goal: Understand your diagnosis and treatment plan needs, including medications if applicable.
Instructions: Know your diagnosis, underlying causes and treatment plan options, including medications if applicable. Consult with your health care team to learn about your diagnosis and treatment plan, including medications if applicable.
--- NOTE | 2023-05-14 14:48 | CM ---
Pricing on Brilinta 90 mg is $430.70, until patient meets his deductible of $545. Then it would cost $ 79 a month. The patient's [facility] does not have it in stock, but will be able to get it tomorrow.
Patient is not agreeable to the cost. Lexis Santacruz notified. Patient is being switched to Plavix
--- NOTE | 2023-05-14 16:38 | PTCARENOTE ---
Pt ambulated in the halls today, coreen well, no c/o chest pain.
[2023-05-14] MEDS: SINGULAIR 10 MG PO (17:12)
[2023-05-14] MEDS: LIPITOR 40 MG PO (17:12)
[2023-05-14] MEDS: PLAVIX 600 MG PO (17:12)
== END 2023-05-14 18:03 | disposition home health service (06) | DRG 322 ==
LOC: IVU 04:48
PROVIDERS: Clinical Nurse Specialist Family Health; Emergency Medicine; Internal Medicine Interventional Cardiology; ADMITTING PHYSICIAN Hospitalist; ATTENDING PHYSICIAN Internal Medicine; EMERGENCY PHYSICIAN Emergency Medicine; FAMILY PHYSICIAN Family Medicine; OTHER PHYSICIAN Internal Medicine Cardiovascular Disease
PROC: B2111ZZ Fluoroscopy of Multiple Coronary Arteries using Low Osmolar Contrast (ICD-10-PCS; 2023-05-13)
PROC: 027034Z Dilation of Coronary Artery, One Artery with Drug-eluting Intraluminal Device, Percutaneous Approach (ICD-10-PCS; 2023-05-13)
PROC: 4A023N7 Measurement of Cardiac Sampling and Pressure, Left Heart, Percutaneous Approach (ICD-10-PCS; 2023-05-13)
DX: I21.4 Non-ST elevation (NSTEMI) myocardial infarction (principal); I25.10 Atherosclerotic heart disease of native coronary artery without angina pectoris; I12.9 Hypertensive chronic kidney disease with stage 1 through stage 4 chronic kidney disease, or unspecified chronic kidney disease; N18.30 Chronic kidney disease, stage 3 unspecified; E11.22 Type 2 diabetes mellitus with diabetic chronic kidney disease; J44.9 Chronic obstructive pulmonary disease, unspecified; M10.9 Gout, unspecified; K21.9 Gastro-esophageal reflux disease without esophagitis; Z87.891 Personal history of nicotine dependence; E66.09 Other obesity due to excess calories; Z68.35 Body mass index [BMI] 35.0-35.9, adult
CPT/HCPCS: 71046; 76937; 80048; 80053; 80061; 82248; 82962; 83036; 83735; 84484; 85025; 85027; 85347; 85730; 93005; 93306; 93458; 97162; 97165; 99285; C1725; C1769; C1874; C1894; C9600; Q9967

== ENCOUNTER 2023-12-27 10:40 | Emergency (ER) | payer MEDICARE, OTHER, SELFPAY ==
[2023-12-27 10:55] VITALS: BP 115/79
--- NOTE | 2023-12-27 11:18 | ED.GENMED ---
History of Present Illness
General
Chief Complaint: Flank Pain
Source: patient
Time Seen by Provider: 12/27/23 11:00
History of Present Illness
History of Present Illness:
78yoM with a history of coronary artery disease, COPD, type 2 diabetes, hypertension, CKD, and prostate cancer presenting for evaluation of flank pain. Patient reports 2 days of left flank pain. He denies any trauma or inciting incident. Pain is
worse with movement and is nonradiating. Patient was started on a water pill last week by his client insights consultant for leg swelling. He believes the water pill may be damaging his kidneys and is what is causing his flank pain. He stopped taking the water
pill 2 days ago when his pain started. He has not taken anything OTC for his symptoms. Patient reports that he is urinating normally and denies any dysuria or hematuria. He denies any fevers, chills, vomiting.
Past History
Past History
ED Past Medical History: Cancer (Prostate CA with Radiation), COPD, GERD, HTN, NIDDM and Other (PNA, Hernia, Back pain, )
ED Past Surgical History: Tonsilectomy and Other (Brain Tumor removed, facial reconstruction after dog bite, Hernia repair)
Social History
Tobacco: Former smoker
Alcohol: Occasional
Drug: None
Personal:
Living: alone
Employment: Retired
Family History
Family History: Other (Patient's brother has had angioneurotic edema from IVY inhibitor use.)
Phy Exam
General Physical Exam
General Presentation: well appearing and no apparent distress
General age: appears stated age
General Skin: warm and dry
General Habitus: normal
General Mental: alert
Cardiovascular Exam
Cardiovascular Exam: regular rate/rhythm
Pulmonary Exam
Pulmonary Exam: lungs clear, no respiratory distress and no crackles
Gastrointestinal Exam
Gastrointestinal Exam: non tender, soft, non distended and no cva tenderness
Musculoskeletal Exam
Musculoskeletal Exam: other (No reproducible tenderness in lumbar region. No skin changes. )
Skin Exam
Skin Exam: normal color and warm/dry
Psychiatric Exam
Psychiatric Exam: normal mood/affect
Course
Orders/Labs/Results
Orders:
Orders
12/27/23 11:17
Acetaminophen 1000MG/100Ml [Ofirmev] 1,000 mg in 100 ml IV ONCE
Acetaminophen IV Indication:: ED Narcotic Naive Pt-ONCE
12/27/23 11:22
CT Abd/pel Without Iv Or Oral Urgent
Comment:
Reason For Exam: L flank pain
12/27/23 11:36
Complete Blood Count/With Diff Urgent
Comprehensive Metabolic Panel Urgent
12/27/23 11:43
0.9% Sodium Chloride 250 ml [Nss] 250 ml IV BOLUS
12/27/23 12:44
Urinalysis Reflex To Culture Urgent
Date Specimen was Collected: 12/27/23
Time Specimen was Collected: 12:43
Abnormal Lab Results
12/27/23
11:36
WBC 13.5 H 10^3/uL
(4.8-10.8)
RBC 3.67 L 10^6/uL
(4.70-6.10)
Hgb 11.5 L g/dL
(13.0-18.0)
Hct 35.3 L %
(39.0-52.0)
MCV 96.2 H fL
(80.0-94.0)
MCH 31.3 H pg
(27.0-31.0)
MCHC 32.6 L g/dL
(33.0-37.0)
Abs Immat Gran (auto) 0.1 H 10^3/uL
(0-0.05)
Absolute Neuts (auto) 9.7 H 10^3/uL
(1.4-6.5)
Absolute Monos (auto) 1.1 H 10^3/uL
(0.1-0.6)
Immature Gran % 0.7 H %
(0-0.5)
Lymphocytes % 16.5 L %
(20.5-51.1)
BUN 50 H mg/dl
(9-20)
Creatinine 2.1 H mg/dL
(0.7-1.3)
Glucose 148 H mg/dl
(70-99)
12/27/23 11:36
12/27/23 11:36
Vital Signs
Initial and Last Documented VS:
Initial Vital Signs
Temp Pulse Resp BP Pulse Ox
98.0 F 90 18 115/79 93
12/27/23 10:55 12/27/23 10:55 12/27/23 10:55 12/27/23 10:55 12/27/23 10:55
Last Documented Vital Signs
Temp Pulse Resp BP Pulse Ox
98.0 F 77 13 136/75 94
12/27/23 10:55 12/27/23 14:00 12/27/23 14:00 12/27/23 11:41 12/27/23 14:00
MDM/Problems Addressed
Differential Diagnosis Includes:
78yoM here with atraumatic L flank pain x 2 days. Worse with movement. Patient recently started on a diuretic last week which he believes is contributing. No urinary complaints. He is afebrile and hemodynamically stable. He is well appearing in no
distress. No abdominal or CVA tenderness on exam. Differential diagnosis includes but is not limited to: musculoskeletal, kidney stone, pyelonephritis
Initial ED plan: Check CBC, CMP, UA, and CT abdomen. IV Ofirmev for pain.
*Critical Care Note
Total Time (30-74mins, 75-104mins- exclusive of procedures): Not Applicable
Update Note
Update Note:
Labs reveal a leukocytosis with a WBC of 13 which is nonspecific. Creatinine 2.1, mildly up from 1.8 in May 2023. BUN also elevated at 50. UA bland without proteinuria or signs of infection. CT is negative for acute findings. Specifically,
there is no hydronephrosis or ureterolithiasis.
Renal function mildly above baseline but does not meet admission criteria. This is likely 2/2 diuretic use which he self-discontinued 2 days ago. Unclear etiology of pain. Suspect musculoskeletal pain given that pain is worse with movement.
Supportive care discussed. Advised close f/u with PCP. Discussed need for repeat blood work in 1 week to monitor renal function. ED return precautions discussed. He was discharged in stable condition.
ED Attending Note
-
Portions of this chart may have been created with voice recognition software.� Occasional wrong word or��sound alike� substitutions may have occurred due to the inherent limitations of voice recognition software.
Discharge Plan
Departure
Patient Disposition: Home (Routine Discharge)
Date of Disposition: 12/27/23
Time of Disposition: 13:47
Patient with high blood pressure during this ER visit?: No
Discharge Problem:
Left flank pain
Instructions: Flank Pain (DC)
Prescriptions:
No Action
allopurinol 300 MG tablet
300 mg PO DAILY
glimepiride 4 MG tablet
4 mg PO DAILY
metformin 500 MG tablet extended release 24 hr
500 mg PO BID
irbesartan 300 MG tablet
300 mg PO DAILY
amlodipine 10 MG tablet
10 mg PO DAILY
montelukast [Singulair] 10 mg Tablet
10 mg PO QPM
Primatene Mist 0.125 mg/actuation Hfa Aerosol Inhaler
1 puff INHALATION R Q4HPRN PRN (Reason: SOB)
pantoprazole 40 mg Tablet,Delayed Release (Dr/Ec)
40 mg PO DAILY Qty: 30 11RF
atorvastatin 40 mg Tablet
40 mg PO QPM Qty: 30 11RF
aspirin [Children's Aspirin] 81 mg Tablet,Chewable
81 mg PO DAILY Qty: 30 0RF
metoprolol succinate 25 mg Tablet Extended Release 24 Hr
12.5 mg PO BID Qty: 60 11RF
clopidogrel [Plavix] 75 mg tablet
75 mg PO DAILY Qty: 30 11RF
Referrals:
[facility] Director-Christine Cox CRNP [Family Provider] -
Activity Restrictions/Additional Instructions:
Apply heat to affected area. Use lidocaine patches daily (12 hours on, 12 hours off). Take Tylenol 650mg every 6 hours as needed.
Please follow-up with your family doctor. You should have repeat blood work in 1 week to monitor your kidney function.
Return to the ER with any new or worsening symptoms.
Interventions
Interventions:
*Risk Screen - Suicide Last Done: 12/27/23 10:55
*General Assessment Last Done: 12/27/23 11:22
*Neglect/Abuse Screening Last Done: 12/27/23 10:55
ED- Fall Risk Assessment Last Done: 12/27/23 11:48
*ED COVID-19 Vaccine History Last Done: 12/27/23 10:55
*Nursing Disposition Last Done: 12/27/23 14:27
KV-Qqynqg-Zlirgrqfjx Assessment Last Done: 12/27/23 11:47
ED-Male Genitourinary Assessment Last Done: 12/27/23 11:47
Discharge Date and Time
Discharge Date/Time: 12/27/23 14:27
Print Language: ECUADOREAN
[2023-12-27 11:22] VITALS: BMI 34.3
[2023-12-27] MEDS: OFIRMEV 100 IV (11:37)
[2023-12-27 11:41] VITALS: BP 136/75
[2023-12-27] MEDS: NSS 250 IV (11:46)
[2023-12-27 11:51] LABS: % Basophils 0.7 % (0-2); % Immature Granulocytes 0.7 % (0-0.5); % Lymphocytes 16.5 % (20.5-51.1); % Monocytes 8.3 % (1.7-9.3); % Neutrophils 71.8 % (42.2-75.2); Absolute Basophils 0.1 10^3/uL (0-0.2); Absolute Eosinophils 0.3 10^3/uL (0-0.7); Absolute Immature Granulocytes 0.1 10^3/uL (0-0.05); Absolute Lymphocytes 2.2 10^3/uL (1.2-3.4); Absolute Monocytes 1.1 10^3/uL (0.1-0.6); Absolute Neutrophils 9.7 10^3/uL (1.4-6.5); Hematocrit 35.3 % (39.0-52.0); Hemoglobin 11.5 g/dL (13.0-18.0); Mean Corp Hgb Conc. 32.6 g/dL (33.0-37.0); Mean Corpuscular Hgb 31.3 pg (27.0-31.0); Mean Corpuscular Volume 96.2 fL (80.0-94.0); Mean Platelet Volume 9.8 fL (7.4-10.4); Nucleated Red Blood Cells % 0 % (-); Platelet Count 349 10^3/uL (130-400); Red Blood Cell Count 3.67 10^6/uL (4.70-6.10); White Blood Cell Count 13.5 10^3/uL (4.8-10.8)
[2023-12-27 12:03] LABS: ALT (SGPT) 11 U/L (0-50); AST (SGOT) 17 U/L (17-59); Alkaline Phosphatase 86 U/L (38-126); Blood Urea Nitrogen 50 mg/dl (9-20); Calcium 9.8 mg/dl (8.4-10.2); Carbon Dioxide 26 mmol/L (22-30); Chloride 103 mmol/L (98-107); Estimated Creatinine Clearance 34 ml/min; Glucose 148 mg/dl (70-99); Potassium 5.1 mmol/L (3.5-5.1); Sodium 141 mmol/L (135-145); Total Bilirubin 0.8 mg/dl (0.2-1.3); Total Protein 6.5 g/dl (6.3-8.2); eGFR 31.82
[2023-12-27 12:55] LABS: Urine Albumin Trace (Neg - Trace); Urine Bilirubin Negative (Negative); Urine Character Clear (Clear); Urine Color Yellow; Urine Glucose Negative (Negative); Urine Ketone Negative (Negative); Urine Leukocyte Negative (Negative); Urine Nitrite Negative (Negative); Urine Occult Blood Negative (Negative); Urine Urobilinogen Negative (Neg - 1+)
== END 2023-12-27 14:27 | disposition home or self-care (01) ==
LOC: EMR 10:40
PROVIDERS: Physician Assistant; EMERGENCY PHYSICIAN Emergency Medicine; FAMILY PHYSICIAN Nurse Practitioner Family
DX: R10.9 Unspecified abdominal pain (principal); I25.10 Atherosclerotic heart disease of native coronary artery without angina pectoris; J44.9 Chronic obstructive pulmonary disease, unspecified; I12.9 Hypertensive chronic kidney disease with stage 1 through stage 4 chronic kidney disease, or unspecified chronic kidney disease; E11.22 Type 2 diabetes mellitus with diabetic chronic kidney disease; N18.9 Chronic kidney disease, unspecified; K21.9 Gastro-esophageal reflux disease without esophagitis; C61 Malignant neoplasm of prostate; Z87.891 Personal history of nicotine dependence
CPT/HCPCS: 99284; 96374; 74176; 80053; 81003; 85025

== ENCOUNTER → 2024-01-12 14:32 | Outpatient (REF) | payer MEDICARE, OTHER, SELFPAY | LOC: HWRCS 14:32 | PROVIDERS: ATTENDING PHYSICIAN Internal Medicine Interventional Cardiology; FAMILY PHYSICIAN Nurse Practitioner Family | DX: I25.10 Atherosclerotic heart disease of native coronary artery without angina pectoris (principal); Z95.5 Presence of coronary angioplasty implant and graft; R06.09 Other forms of dyspnea | CPT/HCPCS: 93306 ==

== ENCOUNTER → 2024-01-13 07:18 | Outpatient (REF) | payer MEDICARE, OTHER, SELFPAY | LOC: DHCBC/DCA 07:18 | PROVIDERS: ATTENDING PHYSICIAN Internal Medicine Interventional Cardiology; FAMILY PHYSICIAN Nurse Practitioner Family | DX: I25.10 Atherosclerotic heart disease of native coronary artery without angina pectoris (principal); Z95.5 Presence of coronary angioplasty implant and graft; R06.09 Other forms of dyspnea | CPT/HCPCS: 78452; 93017; A9500; J2785 ==

== ENCOUNTER 2024-06-06 10:14 | Inpatient (IN) | payer MEDICARE, OTHER, SELFPAY ==
[2024-06-05] VITALS (8 sets, daily range): BP systolic 109–137; BP diastolic 57–71; BMI 35.3
--- NOTE | 2024-06-05 15:58 | ED.GENMED ---
History of Present Illness
General
Chief Complaint: Breathing Problem
Source: patient
Exam Limitations: none
Time Seen by Provider: 06/05/24 15:56
Nursing documentation reviewed up to this point in time: agreed with
History of Present Illness
History of Present Illness:
Patient is a 78-year male who lives by himself presents to the ER for shortness of breath since last night and cough. Patient denies any fevers. 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 Mathur however has not seen a family
doctor in a while. He reports he has had issues with shortness of breath and cough in the past and uses' Primatene Mist' because other inhalers are too expensive. He does not have a executive secretary social welfare. He is a former smoker but quit years ago.
He denies any associated fever chills.
Past History
Past History
ED Past Medical History: Cancer (Prostate CA with Radiation), COPD, GERD, HTN, NIDDM and Other (PNA, Hernia, Back pain, )
ED Past Surgical History: Tonsilectomy and Other (Brain Tumor removed, facial reconstruction after dog bite, Hernia repair)
Social History
Tobacco: Former smoker
Alcohol: Occasional
Drug: None
Personal:
Living: alone
Employment: Retired
Family History
Family History: Other (Patient's brother has had angioneurotic edema from IVY inhibitor use.)
Review of Systems
Review of Systems
Allergies reviewed?: Yes
All Other Systems: ROS reviewed and negative except as documented in HPI and ROS
Constitutional: Reports no symptoms; Denies fever, fatigue or chills
EENT: Reports no symptoms
Respiratory: Reports cough and trouble breathing
Cardiac: Reports no symptoms
ABD/GI: Reports no symptoms
: Reports no symptoms
Musculoskeletal: Reports no symptoms
Skin: Reports no symptoms
Neurological: Reports no symptoms
Hematologic/Lymphatic: Reports no symptoms
Psychiatric: Reports no symptoms
Phy Exam
General Physical Exam
General Presentation: no apparent distress
General age: appears stated age
General Skin: warm and dry
General Habitus: normal
General Mental: alert
General Hydration: dry mucous membranes
Cardiovascular Exam
Cardiovascular Exam: regular rate/rhythm, no murmur and normal peripheral pulses
Pulmonary Exam
Pulmonary Exam: other (Decreased throughout scattered expiratory wheeze to right base)
Neurological Exam
Neurological Exam: alert and oriented x3
Musculoskeletal Exam
Musculoskeletal Exam: full ROM
Skin Exam
Skin Exam: normal color and warm/dry
Psychiatric Exam
Psychiatric Exam: normal mood/affect
Scores
Heart Failure Risk
Heart Failure Risk Score: Not Applicable
Course
Orders/Labs/Results
Orders:
Orders
06/05/24 Dinner
Cholesterol Lowering
At Your Request: Full Participation
Cholesterol Lowering: Sodium, 2 Gram
06/05/24 15:44
Electrocardiogram (*1) Urgent
Reason for Study: Other
Other Reason for Exam: Respiratory Distress
EKG- Treatment ONCE
06/05/24 15:56
CXR Port [CR Chest Portable - 1 View] Urgent
Comment:
Reason For Exam: sob
Reason Study Needs to be Portable: Unable to Transport
06/05/24 15:58
Albuterol Sulfate [Ventolin Nebules] 7.5 mg INH R NOW STA
Dexamethasone Sod Phosphate [Decadron] 10 mg IV NOW STA
Ipratropium Nebs [Atrovent Nebules] 1 mg INH R NOW STA
06/05/24 16:10
COVID-19 Antigen Urgent
Source: Nasal Swab
Complete Blood Count/With Diff Urgent
Comprehensive Metabolic Panel Urgent
NT-proBNP Urgent
Troponin I Urgent
Influenza A+B Rapid Molecular Urgent
KITTY Source: Nasal Swab
Specimen Description:
06/05/24 16:44
Oseltamivir Phosphate [Tamiflu] 75 mg PO NOW STA
06/05/24 17:20
Admit/Transfer Patient As Directed
Co-Sign Provider:
Level of Care: Observation services
Assign to:: Medical/Surgical
Physician / Group: bryan
Diagnosis: copd exacerbation/ flu
06/05/24 17:21
Code Status As Directed
Resuscitation Status: Full Code
PRN Pain Medication Management As Directed
May give lesser potent ordered pain med per pt: Yes
preference::
Protocol:: Medication orders for pain may be administered in a
manner that supports deferring to patient preference
when the pt is:
- Requesting an ordered lesser potent pain medication.
Least to most potent pain medications are defined
as: acetaminophen < NSAID < tramadol < opioids
(morphine, oxycodone, hydromorphone).
- Requesting a lesser dose of the same medication IF
ORDERED.
- Requesting a less intrusive route of administration
if both routes are prescribed by the provider (PO <
IV).
06/05/24 20:31
Dextrose 50%-Water [Dextrose 50% Syringe] 12.5 grams IV [id number] PRN
Glucagon [GlucaGen] 1 mg IM PRN PRN
Ipratropium/Albuterol Sulfate [Duoneb] 3 ml INH R Q4HPRN PRN
Ipratropium/Albuterol Sulfate [Duoneb] 3 ml INH R QID
06/05/24 20:31
Activity As Directed
Activity Level: As Tolerated
Bedside Glucose Monitoring As Directed
Frequency: AC&HS
Additional Instructions:: Change to q6h if pt on TPN, tube feeding or not eating
Vital Signs As Directed
Frequency: Per unit guidelines
DX Deep Vein Thrombosis Video Routine
06/05/24 21:00
Flush (0.9% Sodium Chloride) [Flush (Nss)] See Dose Instructions IV PER PROTOCOL
06/05/24 21:57
Acetaminophen [Tylenol] 650 mg PO Q6HPRN PRN
06/05/24 22:00
Heparin 5,000 units SC Q12
Metoprolol Xl [Toprol Xl] 75 mg PO BID
Montelukast Sodium [Singulair] 10 mg PO QPM
06/06/24 05:42
Basic Metabolic Panel IN AM
Complete Blood Count/With Diff IN AM
Glycohemoglobin (HgbA1c) IN AM
06/06/24 06:00
Dexamethasone Sod Phosphate [Decadron] 4 mg IV Q12H
06/06/24 07:30
Insulin Aspart Corrective Low [Novolog Flexpen-Low Resistance] See Protocol SC AC
06/06/24 08:00
Amlodipine [Norvasc] 10 mg PO DAILY
Aspirin Chewable [Low Strength Aspirin] 81 mg PO DAILY
Atorvastatin [Lipitor] 80 mg PO DAILY
Clopidogrel Bisulfate [Plavix] 75 mg PO DAILY
Furosemide [Lasix] 40 mg PO DAILY
Glimepiride [Amaryl] 4 mg PO DAILY
Irbesartan [Avapro] 300 mg PO DAILY
Oseltamivir Phosphate [Tamiflu] 30 mg PO BID
Pantoprazole [Protonix] 40 mg PO DAILY
06/06/24 09:52
Peripheral Venous Lwr Ext Bilat US [US Periph Venous LOWER Ext Deangelo] Urgent
Comment:
Reason For Exam: hypoxia
06/06/24 09:58
Echo Follow up Study W Dop Routine
Reason for Study: Hypoxia
Comment: COPD/FLU
06/06/24 10:35
D-Dimer Routine
Abnormal Lab Results
06/05/24 06/06/24 06/06/24
16:10 05:42 08:38
WBC 12.9 H 10^3/uL
(4.8-10.8)
RBC 3.71 L 10^6/uL 3.64 L 10^6/uL
(4.70-6.10) (4.70-6.10)
Hgb 11.6 L g/dL 11.4 L g/dL
(13.0-18.0) (13.0-18.0)
Hct 35.4 L % 34.4 L %
(39.0-52.0) (39.0-52.0)
MCV 95.4 H fL 94.5 H fL
(80.0-94.0) (80.0-94.0)
MCH 31.3 H pg 31.3 H pg
(27.0-31.0) (27.0-31.0)
MCHC 32.8 L g/dL
(33.0-37.0)
Abs Immat Gran (auto) 0.1 H 10^3/uL 0.1 H 10^3/uL
(0-0.05) (0-0.05)
Absolute Neuts (auto) 10.1 H 10^3/uL
(1.4-6.5)
Absolute Lymphs (auto) 0.9 L 10^3/uL 0.6 L 10^3/uL
(1.2-3.4) (1.2-3.4)
Absolute Monos (auto) 1.6 H 10^3/uL
(0.1-0.6)
Immature Gran % 0.9 H % 1.6 H %
(0-0.5) (0-0.5)
Neutrophils % 77.9 H % 86.6 H %
(42.2-75.2) (42.2-75.2)
Lymphocytes % 6.8 L % 8.8 L %
(20.5-51.1) (20.5-51.1)
Monocytes % 12.1 H %
(1.7-9.3)
Carbon Dioxide 21 L mmol/L
(22-30)
BUN 37 H mg/dl 43 H mg/dl
(9-20) (9-20)
Creatinine 2.0 H mg/dL 2.0 H mg/dL
(0.7-1.3) (0.7-1.3)
Glucose 117 H mg/dl 258 H mg/dl
(70-99) (70-99)
Hemoglobin A1c 6.4 H %
(4.0-5.6)
POC Glucose 222 H mg/dl
(70-99)
06/06/24 05:42
06/06/24 05:42
Vital Signs
Initial and Last Documented VS:
Initial Vital Signs
Temp Pulse Resp BP Pulse Ox
98.4 F 87 30 118/66 86
06/05/24 15:45 06/05/24 15:45 06/05/24 15:45 06/05/24 15:45 06/05/24 15:45
Last Documented Vital Signs
Temp Pulse Resp BP Pulse Ox
97.8 F 63 16 128/69 93
06/07/24 07:05 06/07/24 07:05 06/07/24 07:05 06/07/24 08:28 06/07/24 10:20
MDM/Problems Addressed
Differential Diagnosis Includes:
Not limited to COPD exacerbation, pneumonia, bronchitis, influenza, COVID
MDM/Problems Addressed:
Patient is a 78 male with COPD however only uses Primatene Mist [id number] because of cost presents for shortness of breath since last night. Patient is a previous smoker quit years ago. Patient presents hypoxic decreased breath sounds to
the right with scattered wheezing on exam tight. Patient was given an hour-long neb and steroids. Patient was found to be flu positive. Patient is afebrile white count 12.9, hemoglobin 11.6 at baseline no acute findings on chest x-ray; patient's
BUN is slightly elevated creatinine slightly elevated 2.0 however at baseline. Patient has chronic kidney disease stage III.
Symptoms of flu cough and shortness of breath started last night ; patient is hypoxic and will require admission. will give Tamiflu patient will require nebs and continue monitoring
*Critical Care Note
Total Time (30-74mins, 75-104mins- exclusive of procedures): Not Applicable
ED Attending Note
-
Portions of this chart may have been created with voice recognition software.� Occasional wrong word or��sound alike� substitutions may have occurred due to the inherent limitations of voice recognition software.
Discharge Plan
Departure
Patient Disposition: Admit
Date of Disposition: 06/05/24
Time of Disposition: 16:48
Admit to: Telemetry
Admit to doctor: hospitalist
Presentation/result/management discussed w/ accepting MD/DO: Hospitalist
Patient with high blood pressure during this ER visit?: No
Condition: Fair
Covid-19: Not Applicable
Discharge Problem:
hypoxia, Influenza A
Interventions
Interventions:
*General Assessment Last Done: 06/05/24 16:00
*Neglect/Abuse Screening Last Done: 06/05/24 15:45
ED- Fall Risk Assessment Last Done: 06/05/24 16:00
*Nursing Disposition Last Done: 06/06/24 15:25
ED- Cardiac Assessment Last Done: 06/05/24 16:00
ED- Pulmonary Assessment Last Done: 06/05/24 16:00
Discharge Date and Time
Discharge Date/Time: 06/06/24 15:25
[2024-06-05] MEDS: ATROVENT NEBULES 1 MG INH (16:20)
[2024-06-05] MEDS: DECADRON 10 MG IV (16:20)
[2024-06-05] MEDS: VENTOLIN NEBULES 7.5 MG INH (16:21)
[2024-06-05 16:25] LABS: % Basophils 0.8 % (0-2); % Eosinophils 1.5 % (0-6); % Immature Granulocytes 0.9 % (0-0.5); % Lymphocytes 6.8 % (20.5-51.1); % Monocytes 12.1 % (1.7-9.3); % Neutrophils 77.9 % (42.2-75.2); Absolute Basophils 0.1 10^3/uL (0-0.2); Absolute Eosinophils 0.2 10^3/uL (0-0.7); Absolute Immature Granulocytes 0.1 10^3/uL (0-0.05); Absolute Lymphocytes 0.9 10^3/uL (1.2-3.4); Absolute Monocytes 1.6 10^3/uL (0.1-0.6); Absolute Neutrophils 10.1 10^3/uL (1.4-6.5); Hematocrit 35.4 % (39.0-52.0); Hemoglobin 11.6 g/dL (13.0-18.0); Mean Corp Hgb Conc. 32.8 g/dL (33.0-37.0); Mean Corpuscular Hgb 31.3 pg (27.0-31.0); Mean Corpuscular Volume 95.4 fL (80.0-94.0); Mean Platelet Volume 9.6 fL (7.4-10.4); Nucleated Red Blood Cells % 0 % (-); Platelet Count 295 10^3/uL (130-400); Red Blood Cell Count 3.71 10^6/uL (4.70-6.10); Red Cell Dist. Width 12.9 % (11.5-14.5); White Blood Cell Count 12.9 10^3/uL (4.8-10.8)
[2024-06-05 16:36] LABS: ALT (SGPT) 14 U/L (0-50); AST (SGOT) 20 U/L (17-59); Albumin 4.3 g/dl (3.5-5.0); Alkaline Phosphatase 110 U/L (38-126); Blood Urea Nitrogen 37 mg/dl (9-20); Calcium 8.4 mg/dl (8.4-10.2); Carbon Dioxide 25 mmol/L (22-30); Chloride 102 mmol/L (98-107); Estimated Creatinine Clearance -1 ml/min; Glucose 117 mg/dl (70-99); Potassium 4.8 mmol/L (3.5-5.1); Sodium 139 mmol/L (135-145); Total Protein 6.7 g/dl (6.3-8.2); eGFR 33.74
[2024-06-05 16:37] LABS: COVID-19 Antigen Negative (Negative)
[2024-06-05 16:47] LABS: NT-proBNP 1500 pg/ml; Troponin I < 0.012 ng/ml
--- NOTE | 2024-06-05 17:25 | HPS.HSE ---
Family Physician
-
Family Physician: * NONE
Chief Complaint
-
cough
History of Present Illness
78-year-old male past medical history of prostate cancer status post radiation, CAD status post stent, COPD, GERD, hypertension, diabetes, presenting with shortness of breath since last night with cough. Denies any fever but has chills. No sore
throat. No vomiting or diarrhea. No chest pain or lower extremity edema. No sick contacts.
He is a former smoker. He drinks alcohol occasionally.
Medical History
Past Medical History
Past Medical History: Reports Other (prostate cancer status post radiation, CAD status post stent, COPD, GERD, hypertension, diabetes,)
Past Surgical History: Reports Other (Tonsilectomy and Other (Brain Tumor removed, facial reconstruction after dog bite, Hernia repair))
Social History
Tobacco: Former Smoker
Alcohol: Occasional
Drug: None
Family History
Family History: Not pertinent
Allergies / Home Medications
Allergies reflects when Allergies were last updated in [facility].
Home Medications with original date entered in [facility]
Allergy/Medication List:
Allergies
Allergy/AdvReac Type Severity Reaction Status Date / Time
grass pollen Allergy nasal Verified 06/05/24 15:43
congestion
pollen extracts Allergy nasal Verified 06/05/24 15:43
congestion
Home Medications
amlodipine 10 mg tablet 10 mg PO DAILY Blood Pressure 08/29/17
glimepiride 4 mg tablet 4 mg PO DAILY Diabetes 08/29/17
epinephrine 0.125 mg/actuation aerosol inhaler (Primatene Mist) 1 puff inhalation R Q4HPRN PRN SOB 09/03/22
montelukast 10 mg tablet (Singulair) 10 mg PO QPM Allergies 09/03/22
aspirin 81 mg chewable tablet (Children's Aspirin) 81 mg PO DAILY #30 tabs 05/14/23
clopidogrel 75 mg tablet (Plavix) 75 mg PO DAILY Heart disease/condition #30 tabs 05/14/23
pantoprazole 40 mg tablet,delayed release 40 mg PO DAILY Gastrointestinal issue #30 tabs 05/14/23
acetaminophen 650 mg tablet,extended release 1,300 mg PO [id number] PRN mild pain 06/05/24
atorvastatin 40 mg tablet 80 mg PO DAILY High cholesterol 06/05/24
fluticasone propionate 50 mcg/actuation nasal spray,suspension 1 spray intranasal DAILY 06/05/24
furosemide 40 mg tablet (Lasix) 40 mg PO DAILY 06/05/24
irbesartan 300 mg tablet 300 mg PO DAILY 06/05/24
metformin 500 mg tablet 500 mg PO BID 06/05/24
metoprolol succinate 25 mg tablet,extended release 24 hr 75 mg PO BID Heart disease/condition 06/05/24
Review of Systems
-
History Source: Patient
A 12 point ROS was completed and negative except as noted: Yes
Constitutional: Reports No Symptoms
EENT: Reports No Symptoms
Respiratory: Reports See HPI
Cardiac: Reports No Symptoms
Abdomen/GI: Reports No Symptoms
: Reports No Symptoms
Musculoskeletal: Reports No Symptoms
Skin: Reports No Symptoms
Neurological: Reports No Symptoms
Endocrine: Reports No Symptoms
Hematologic/Lymphatic: Reports No Symptoms
Psych: Reports No Symptoms
Physical Exam
Vital Signs
Vital Signs
Temp Pulse Resp BP Pulse Ox
98.4 F 89 18 116/71 92
06/05/24 15:45 06/05/24 16:18 06/05/24 16:18 06/05/24 16:00 06/05/24 16:18
Physical Exam
General: Well Developed, Well Nourished and No Apparent Distress
HEENT: NormoCephalic, Moist mucous membranes and Atraumatic
Respiratory: Wheezes
Cardiac: S1/S2 and Regular Rhythm; No Murmur or Rub
GI: Soft, Non Tender, Non Distended and Normal Bowel Sounds; No Organomegaly
Rectal: Deferred by Provider
Musculoskeletal: No Clubbing, No Cyanosis and No Edema
Skin: No Rash
Neuro: Nonfocal/grossly intact
Laboratory Results
-
06/05/24 16:10
06/05/24 16:10
Laboratory Results
Total Bilirubin 1.0 mg/dl (0.2-1.3) 06/05/24 16:10
AST 20 U/L (17-59) 06/05/24 16:10
ALT 14 U/L (0-50) 06/05/24 16:10
Alkaline Phosphatase 110 U/L (38-126) 06/05/24 16:10
Troponin I < 0.012 ng/ml 06/05/24 16:10
Data Reviewed
-
Lab Data: Labs Reviewed by me
Old Records: Reviewed
Impression/Plan
-
IMPRESSION:
PLAN:
# Acute COPD exacerbation
# Influenza infection
-Chest x-ray appears unremarkable, report pending
-Tamiflu started
-DuoNebs every 6 hours
-Dexamethasone 4 mg every 12
-Continue montelukast
CKD 3
-Renal function close to baseline creatinine of 2
Chronic lower extreme edema
-Continue Lasix
-No evidence of heart failure noted in chart, although may have underlying cardiomyopathy
CAD status post stent
-Continue aspirin, Plavix, statin
History of right bundle branch block
GERD
-Continue Protonix
Essential hypertension
-Continue amlodipine
-Continue metoprolol
-Continue irbesartan
Type 2 diabetes
-Continue glimepiride
-Insulin sliding scale
-Hold metformin
Chronic anemia
-Hemoglobin stable
Obesity secondary to excess calories
Full code
DVT prophylaxis�heparin
Diabetic diet
[2024-06-05] MEDS: TAMIFLU 75 MG PO (17:30)
[2024-06-05] MEDS: DUONEB 3 ML INH (22:02)
[2024-06-05] MEDS: TOPROL XL 75 MG PO (22:14)
[2024-06-05] MEDS: HEPARIN 5000 UNITS SC (22:15)
[2024-06-05] MEDS: SINGULAIR 10 MG PO (22:15)
[2024-06-06] VITALS (17 sets, daily range): BP systolic 109–142; BP diastolic 59–85; BMI 34.5; BMI 35.6
[2024-06-06] MEDS: DUONEB 3 ML INH ×5 (00:52→19:02)
[2024-06-06] MEDS: DECADRON 4 MG IV ×2 (06:08→17:41)
[2024-06-06 06:35] LABS: % Basophils 0.4 % (0-2); % Immature Granulocytes 1.6 % (0-0.5); % Lymphocytes 8.8 % (20.5-51.1); % Monocytes 2.6 % (1.7-9.3); % Neutrophils 86.6 % (42.2-75.2); Absolute Immature Granulocytes 0.1 10^3/uL (0-0.05); Absolute Lymphocytes 0.6 10^3/uL (1.2-3.4); Absolute Monocytes 0.2 10^3/uL (0.1-0.6); Absolute Neutrophils 6.1 10^3/uL (1.4-6.5); Hematocrit 34.4 % (39.0-52.0); Hemoglobin 11.4 g/dL (13.0-18.0); Mean Corp Hgb Conc. 33.1 g/dL (33.0-37.0); Mean Corpuscular Hgb 31.3 pg (27.0-31.0); Mean Corpuscular Volume 94.5 fL (80.0-94.0); Mean Platelet Volume 9.9 fL (7.4-10.4); Nucleated Red Blood Cells % 0 % (-); Platelet Count 307 10^3/uL (130-400); Red Blood Cell Count 3.64 10^6/uL (4.70-6.10); Red Cell Dist. Width 12.8 % (11.5-14.5)
[2024-06-06 06:54] LABS: Blood Urea Nitrogen 43 mg/dl (9-20); Calcium 8.4 mg/dl (8.4-10.2); Carbon Dioxide 21 mmol/L (22-30); Chloride 100 mmol/L (98-107); Estimated Creatinine Clearance 35 ml/min; Glucose 258 mg/dl (70-99); Potassium 4.6 mmol/L (3.5-5.1); Sodium 137 mmol/L (135-145); eGFR 33.74
[2024-06-06] MEDS: TAMIFLU 30 MG PO ×2 (08:26→20:58)
[2024-06-06] MEDS: TOPROL XL 75 MG PO ×2 (08:26→20:58)
[2024-06-06] MEDS: PLAVIX 75 MG PO (08:27)
[2024-06-06] MEDS: LIPITOR 80 MG PO (08:27)
[2024-06-06] MEDS: HEPARIN 5000 UNITS SC ×2 (08:27→21:05)
[2024-06-06] MEDS: NORVASC 10 MG PO (08:27)
[2024-06-06] MEDS: LOW STRENGTH ASPIRIN 81 MG PO (08:27)
[2024-06-06] MEDS: LASIX 40 MG PO (08:27)
[2024-06-06] MEDS: PROTONIX 40 MG PO (08:27)
[2024-06-06 08:39] LABS: Glucose - Point of Care 222 mg/dl (70-99)
[2024-06-06] MEDS: AMARYL 4 MG PO (09:00)
[2024-06-06] MEDS: NOVOLOG FLEXPEN-LOW RESISTANCE 2 UNITS SC (09:00)
[2024-06-06] MEDS: AVAPRO 300 MG PO (09:00)
[2024-06-06 09:02] LABS: Glycohemoglobin (HgbA1c) 6.4 % (4.0-5.6)
--- NOTE | 2024-06-06 09:59 | W.PN.HOSP.TC ---
Today's Communication/Plan
-
Continue O2 supplementation
Peripheral Doppler.
Echocardiogram.
Tamiflu.
Corticosteroids IV.
Assessment / Plan
Assessment / Plan
Impression:
Acute hypoxic respiratory failure.
Influenza bronchitis.
COPD exacerbation suspected secondary to influenza infection.
Other conditions:
COPD/emphysema by history.
CKD stage IIIa with baseline creatinine 1.8�2.
CAD
� Status post non-STEMI following PCI to RCA 05/06
- Echo 05/13/23: EF 55-60%, no WMA, normal RV size and function, mild MR, no aortic regurgitation
Essential hypertension
Type 2 diabetes.
Obesity with BMI of 35
Plan:
Acute hypoxic respiratory failure, currently on 5 L of nasal cannula oxygen.
Suspect secondary influenza with acute bronchitis.
COPD exacerbation secondary to above.
Chest x-ray with no infiltrate
Noted elevated pro CHF BNP of baseline with normal troponins
Check lower extremity Doppler.
D-dimer, although likely will be inconclusive given CKD.
Repeat echocardiogram
Consider further imaging likely VQ scan. Patient with CKD and creatinine of 2, would be relative contraindication for IV contrast for CT PE protocol
Continue Tamiflu (dose adjusted to renal clearance)
Initiated on systemic steroids/Decadron 4 every 12.
Continue inhaled KRISTOPHER/PORFIRIO.
COPD by history.
Not following with resaw operator.
Not on any treatment other than Singulair.
Will need outpatient versus inpatient pulmonology consult depends on further clinical progression
CAD.
Hypertension
Suspected chronic CHF preserved EF.
Noted elevated pro CHF BNP of baseline.
ECG on presentation with normal sinus rhythm and old RBBB
Troponin within normal limits
Weight not increased since last visit.
Very minimal lower peripheral edema and overall no evidence of volume overload
Repeat echocardiogram as a part of workup for hypoxia
Continue preadmission regimen with Plavix, statin, Norvasc, metoprolol, Avapro.
Continue Lasix at 40 mg daily
Diabetes type 2
Hemoglobin A1c 6.4.
Continue Amaryl
Hold metformin.
Continue basal bolus protocol with serial Accu-Cheks
Obesity with BMI of 35
Affects all aspects of care.
Full code
DVT prophylaxis heparin subcu
Anticipated Discharge: 24 - 48 hours
Subjective/Interval History
-
Date of Service: June 06, 2024
Objective Data
-
Labs:
Laboratory Results
06/06/24
05:42
WBC 7.0
Hgb 11.4 L
Hct 34.4 L
Plt Count 307
Sodium 137
Potassium 4.6
Chloride 100
Carbon Dioxide 21 L
BUN 43 H
Creatinine 2.0 H
Glucose 258 H
Calcium 8.4
Vital Signs:
Vital Signs
Temp Pulse Resp BP Pulse Ox
97.6 F 87 16 142/76 91
06/06/24 08:56 06/06/24 09:45 06/06/24 08:15 06/06/24 09:00 06/06/24 09:45
Physical Exam
-
General: Well Developed and No Apparent Distress
HEENT: Normocephalic, Atraumatic and Moist Mucous Membranes
Respiratory: Clear to Auscultation
Cardiac: Regular Rhythm and S1/S2; Negative Murmur, Rub or Gallop
GI: Soft, Nontender, Nondistended and Normal Bowel Sounds; Negative Organomegaly
Rectal: Deferred by Provider
Musculoskeletal: No Clubbing, No Cyanosis and No Edema
Skin: Negative Rash
Neuro: Nonfocal/Grossly Intact
[2024-06-06 11:00] LABS: D-Dimer 0.91 ug/mlFEU (0.00-0.50)
--- NOTE | 2024-06-06 11:33 | CM ---
CM following re: discharge planning.
Reviewed pt's chart, met with pt.
Per UR CM pt is upgraded from OBS to inpatient level of care. IMM reviewed, placed on chart, pt has a copy.
Pt is a 78 year old male, admitted with primary dx of Acute hypoxic respiratory failure. Influenza bronchitis.
Pt reports he lives alone 2SH,1 step to enter, has 2 supportive sons and supportive brother. 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 No DME, VN or SNF history. Pt expressed his desire to
return back home at discharge.
PCP: pt stated his PCP left the practice and he does not have PCP; resident's program at [facility] information provided. brochure given. Pt stated he will call them to schedule an appointment
Pharmacy: [facility]
D/C plan: home with anticipated no needs.
CM will follow with discharge plan updates as hospitalization progresses
[2024-06-06 14:14] LABS: Glucose - Point of Care 265 mg/dl (70-99)
[2024-06-06] MEDS: NOVOLOG FLEXPEN-LOW RESISTANCE 3 UNITS SC ×2 (14:16→17:41)
--- NOTE | 2024-06-06 16:01 | PTCARENOTE ---
pt transferred to from [facility] this afternoon. on flu precautions, 4L nasal cannula and is dyspneic on exertion. pt is aaox3, continent of bowel and bladder and is on a cholesterol lowering diet. pt medsurg. VSS
[2024-06-06 17:06] LABS: Glucose - Point of Care 270 mg/dl (70-99)
[2024-06-06] MEDS: SINGULAIR 10 MG PO (17:40)
[2024-06-06 21:23] LABS: Glucose - Point of Care 224 mg/dl (70-99)
[2024-06-07] MEDS: MELATONIN 5 MG PO (00:07)
[2024-06-07] MEDS: DECADRON 4 MG IV (06:07)
[2024-06-07 07:05] VITALS: BP 128/69
[2024-06-07 07:10] LABS: Glucose - Point of Care 148 mg/dl (70-99)
[2024-06-07] MEDS: DUONEB 3 ML INH ×2 (07:10→11:08)
[2024-06-07] MEDS: NOVOLOG FLEXPEN-LOW RESISTANCE SC (07:11)
[2024-06-07] MEDS: TOPROL XL 75 MG PO (08:27)
[2024-06-07] MEDS: LIPITOR 80 MG PO (08:27)
[2024-06-07] MEDS: AVAPRO 300 MG PO (08:27)
[2024-06-07] MEDS: PROTONIX 40 MG PO (08:28)
[2024-06-07] MEDS: LASIX 40 MG PO (08:28)
[2024-06-07] MEDS: AMARYL 4 MG PO (08:28)
[2024-06-07] MEDS: TAMIFLU 30 MG PO (08:28)
[2024-06-07] MEDS: NORVASC 10 MG PO (08:28)
[2024-06-07] MEDS: LOW STRENGTH ASPIRIN 81 MG PO (08:28)
[2024-06-07] MEDS: PLAVIX 75 MG PO (08:28)
[2024-06-07] MEDS: HEPARIN SC (08:29)
--- NOTE | 2024-06-07 11:15 | PN.CDI ---
CDI
- -
CDI:
Physician Documentation Request
Admit Date: 06/06/24 10:14
Dear Doctor Jimena,
Please review the following and provide your response in the progress notes.
Clinical Indicators:
Pt admitted with acute hypoxic failure, COPD exacerbation and Influenza with bronchitis.
06/05 HR 87-101, WBC 12.9
Please clarify which of the following most accurately describes the status of the patient's infection:
Sepsis, Viral POA
- Systemic manifestations of infection, with 2 or more SIRS criteria which include:
- Fever >100.4 degrees F or hypothermia < 96.8 degrees F
- Leukocytosis - WBC > 12,000 or leukopenia - WBC < 4,000 or > 10% bands
- Tachycardia > 90 beats per minute
- Tachypnea - RR > 20 breaths per minute or PaCO2 , 32mmHg
Source: Merck Manual 2013
Influenza Bronchitis only
Other
Use of terms such as suspected, likely, concern for, or probable (associated with a specific diagnosis that is being evaluated, monitored, or treated as if it exists) are acceptable and can be coded in the inpatient setting, when documented at the
time of discharge.
Thank you,
Mi San RN,BSN
CDI Specialist
[place] [facility]
Please use your independent medical judgment in providing your response.
[2024-06-07 12:51] LABS: Glucose - Point of Care 311 mg/dl (70-99)
[2024-06-07] MEDS: NOVOLOG FLEXPEN-LOW RESISTANCE 4 UNITS SC (12:59)
--- NOTE | 2024-06-07 14:29 | W.DS.TRANS ---
DC Summary - Product Mgr
-
Discharge Instructions:
Discharge Diagnosis/Procedures Impression:
Acute hypoxic respiratory failure.
Influenza bronchitis.
COPD exacerbation suspected secondary to
influenza infection.
Other conditions:
COPD/emphysema by history.
CKD stage IIIa with baseline creatinine 1.8�2.
CAD
� Status post non-STEMI following PCI to RCA
24
- Echo 05/13/23: EF 55-60%, no WMA, normal RV
size and function, mild MR, no aortic
regurgitation
Essential hypertension
Type 2 diabetes.
Obesity with BMI of 35
Diet Regular
Instructions:
Stand-Alone Forms:
Changes to Home Medications: Yes
Discharge Medications:
DC Medications w/original date entered in [facility]
amlodipine 10 mg tablet 10 mg PO DAILY Blood Pressure 08/29/17
glimepiride 4 mg tablet 4 mg PO DAILY Diabetes 08/29/17
epinephrine 0.125 mg/actuation aerosol inhaler (Primatene Mist) 1 puff inhalation R Q4HPRN PRN SOB 09/03/22
montelukast 10 mg tablet (Singulair) 10 mg PO QPM Allergies 09/03/22
aspirin 81 mg chewable tablet (Children's Aspirin) 81 mg PO DAILY #30 tabs 05/14/23
clopidogrel 75 mg tablet (Plavix) 75 mg PO DAILY Heart disease/condition #30 tabs 05/14/23
pantoprazole 40 mg tablet,delayed release 40 mg PO DAILY Gastrointestinal issue #30 tabs 05/14/23
acetaminophen 650 mg tablet,extended release 1,300 mg PO [id number] PRN mild pain 06/05/24
atorvastatin 40 mg tablet 80 mg PO DAILY High cholesterol 06/05/24
fluticasone propionate 50 mcg/actuation nasal spray,suspension 1 spray intranasal DAILY Allergies 06/05/24
furosemide 40 mg tablet (Lasix) 40 mg PO DAILY Fluid Retention/Swelling 06/05/24
irbesartan 300 mg tablet 300 mg PO DAILY Blood Pressure 06/05/24
metformin 500 mg tablet 500 mg PO BID Diabetes 06/05/24
metoprolol succinate 25 mg tablet,extended release 24 hr 75 mg PO BID Heart disease/condition 06/05/24
albuterol sulfate 90 mcg/actuation aerosol inhaler 2 puff inhalation Q6H PRN shortness of breath or wheezing #6.7 grams 06/07/24
methylprednisolone 4 mg tablets in a dose pack (Medrol (Rey)) See Rx Instructions PO .COMPLEX #21 ea 06/07/24
oseltamivir 30 mg capsule 30 mg PO BID #8 caps 06/07/24
Home Medication Changes
Steroid taper, Albuterol, Oseltamivir
Pending Results: No
[2024-06-07 15:00] VITALS: BP 120/59
[2024-06-07] MEDS: DUONEB INH (15:40)
== END 2024-06-07 16:21 | disposition home or self-care (01) | DRG 194 ==
LOC: 2 NORTH 10:14
PROVIDERS: Emergency Medicine; ADMITTING PHYSICIAN Hospitalist; ATTENDING PHYSICIAN Internal Medicine; EMERGENCY PHYSICIAN Emergency Medicine
DX: J10.1 Influenza due to other identified influenza virus with other respiratory manifestations (principal); I13.0 Hypertensive heart and chronic kidney disease with heart failure and stage 1 through stage 4 chronic kidney disease, or unspecified chronic kidney disease; J44.0 Chronic obstructive pulmonary disease with (acute) lower respiratory infection; J44.1 Chronic obstructive pulmonary disease with (acute) exacerbation; I50.32 Chronic diastolic (congestive) heart failure; N18.31 Chronic kidney disease, stage 3a; E11.22 Type 2 diabetes mellitus with diabetic chronic kidney disease; I25.10 Atherosclerotic heart disease of native coronary artery without angina pectoris; I25.2 Old myocardial infarction; E66.09 Other obesity due to excess calories; Z68.35 Body mass index [BMI] 35.0-35.9, adult; Z85.46 Personal history of malignant neoplasm of prostate; Z92.3 Personal history of irradiation; K21.9 Gastro-esophageal reflux disease without esophagitis; Z87.891 Personal history of nicotine dependence; Z85.841 Personal history of malignant neoplasm of brain; I45.10 Unspecified right bundle-branch block; D64.9 Anemia, unspecified; Z95.5 Presence of coronary angioplasty implant and graft; Z11.52 Encounter for screening for COVID-19; J20.9 Acute bronchitis, unspecified; R09.02 Hypoxemia; J43.9 Emphysema, unspecified
CPT/HCPCS: 93308; 71045; 78582; 80048; 80053; 82962; 83036; 83880; 84484; 85025; 85379; 87502; 87811; 93005; 93321; 93325; 93970; 94640; 96374; 99285; A9540; A9567

== ENCOUNTER 2024-07-05 21:20 | Inpatient (IN) | payer MEDICARE, OTHER, SELFPAY ==
[2024-07-05] VITALS (7 sets, daily range): BP systolic 104–154; BP diastolic 65–82; BMI 35.9
[2024-07-05 18:48] LABS: % Basophils 0.4 % (0-2); % Eosinophils 2.8 % (0-6); % Immature Granulocytes 2.8 % (0-0.5); % Lymphocytes 20.8 % (20.5-51.1); % Monocytes 9.9 % (1.7-9.3); % Neutrophils 63.3 % (42.2-75.2); Absolute Basophils 0.1 10^3/uL (0-0.2); Absolute Eosinophils 0.4 10^3/uL (0-0.7); Absolute Immature Granulocytes 0.4 10^3/uL (0-0.05); Absolute Lymphocytes 2.9 10^3/uL (1.2-3.4); Absolute Monocytes 1.4 10^3/uL (0.1-0.6); Absolute Neutrophils 8.7 10^3/uL (1.4-6.5); Hematocrit 29.6 % (39.0-52.0); Hemoglobin 9.9 g/dL (13.0-18.0); Mean Corp Hgb Conc. 33.4 g/dL (33.0-37.0); Mean Corpuscular Hgb 31.2 pg (27.0-31.0); Mean Corpuscular Volume 93.4 fL (80.0-94.0); Mean Platelet Volume 9.5 fL (7.4-10.4); Nucleated Red Blood Cells % 0 % (-); Platelet Count 318 10^3/uL (130-400); Red Blood Cell Count 3.17 10^6/uL (4.70-6.10); Red Cell Dist. Width 13.2 % (11.5-14.5); White Blood Cell Count 13.7 10^3/uL (4.8-10.8)
[2024-07-05 19:05] LABS: NT-proBNP 959 pg/ml
[2024-07-05 19:10] LABS: ALT (SGPT) 11 U/L (0-50); AST (SGOT) 15 U/L (17-59); Albumin 3.4 g/dl (3.5-5.0); Alkaline Phosphatase 90 U/L (38-126); Blood Urea Nitrogen 25 mg/dl (9-20); Calcium 6.4 mg/dl (8.4-10.2); Carbon Dioxide 26 mmol/L (22-30); Chloride 105 mmol/L (98-107); Glucose 159 mg/dl (70-99); Potassium 4.1 mmol/L (3.5-5.1); Sodium 140 mmol/L (135-145); Total Bilirubin 0.6 mg/dl (0.2-1.3); Total Protein 5.9 g/dl (6.3-8.2); eGFR 41.01
[2024-07-05] MEDS: CALCIUM GLUCONATE 100 IV (19:49)
[2024-07-05 20:10] LABS: Magnesium 0.6 mg/dl (1.6-2.3); Phosphorus 3.7 mg/dl (2.5-4.5)
--- NOTE | 2024-07-05 20:11 | ED.GENMED ---
History of Present Illness
General
Chief Complaint: Swelling
Time Seen by Provider: 07/05/24 19:24
History of Present Illness
History of Present Illness:
78-year-old male presents the emergency department for evaluation of widespread myalgias as well as increasing lower extremity edema. States the edema has been ongoing for the past 3 to 4 days, typically it resolves after keeping the legs elevated
but over the past 24 hours has not resolved. He also notes joint pain specifically shoulders and neck for the past 3 or more weeks. He was admitted to this hospital last month for influenza. He denies any change to his diuretic medications. He
was started on Trelegy for his COPD but cannot afford it, he is using sample packs of this for the time being
Past History
Past History
ED Past Medical History: Cancer (Prostate CA with Radiation), COPD, GERD, HTN, NIDDM and Other (PNA, Hernia, Back pain, )
ED Past Surgical History: Tonsilectomy and Other (Brain Tumor removed, facial reconstruction after dog bite, Hernia repair)
Social History
Tobacco: Former smoker
Alcohol: Occasional
Drug: None
Personal:
Living: alone
Employment: Retired
Family History
Family History: Other (Patient's brother has had angioneurotic edema from IVY inhibitor use.)
Review of Systems
Review of Systems
Allergies reviewed?: Yes
All Other Systems: ROS reviewed and negative except as documented in HPI and ROS
Phy Exam
Physical Exam
Physical Exam:
GEN: Well appearing, NAD, WDWN
HEENT: Oral mucosa moist, no scleral icterus
Cardiac: Regular rate and rhythm, no murmurs
Lung: No respiratory distress, no tachypnea, lungs clear to auscultation bilaterally
MSK: No gross deformity or injuries, 2+ pitting edema bilateral lower extremities
Skin: Good color, no pallor or jaundice, no rashes
Neuro: AO x3, moves all extremities freely
Psych: Calm, cooperative
Scores
Heart Failure Risk
Heart Failure Risk Score: Not Applicable
Course
Orders/Labs/Results
Orders:
Orders
07/05/24 18:27
ECG [Electrocardiogram (*1)] Urgent
Reason for Study: Other
Other Reason for Exam: leg swelling
EKG- Treatment ONCE
07/05/24 18:34
Complete Blood Count/With Diff Urgent
Comprehensive Metabolic Panel Urgent
Magnesium Urgent
Comment: ADD ON
NT-proBNP Urgent
Phosphorus Urgent
Comment: ADD ON
07/05/24 19:27
Add On- LAB Urgent
Tests Added?: phosphorus, magnesium, ionized calcium
07/05/24 19:42
PTH [Intact PTH Includes Calcium] Urgent
Vitamin D, 25-OH Urgent
07/05/24 19:45
Calcium Gluconate 2 gram/100mL [Calcium Gluconate] 2 gram in 100 ml IV ONCE
07/05/24 20:12
Magnesium Sulfate 2 Gram/50 ml [Magnesium Sulfate] 2 gram in 50 ml IV NOW
07/05/24 20:18
Ionized Calcium Urgent
Abnormal Lab Results
07/05/24 07/05/24 07/05/24
18:34 19:42 20:18
WBC 13.7 H 10^3/uL
(4.8-10.8)
RBC 3.17 L 10^6/uL
(4.70-6.10)
Hgb 9.9 L g/dL
(13.0-18.0)
Hct 29.6 L %
(39.0-52.0)
MCH 31.2 H pg
(27.0-31.0)
Abs Immat Gran (auto) 0.4 H 10^3/uL
(0-0.05)
Absolute Neuts (auto) 8.7 H 10^3/uL
(1.4-6.5)
Absolute Monos (auto) 1.4 H 10^3/uL
(0.1-0.6)
Immature Gran % 2.8 H %
(0-0.5)
Monocytes % 9.9 H %
(1.7-9.3)
BUN 25 H mg/dl
(9-20)
Creatinine 1.7 H mg/dL
(0.7-1.3)
Glucose 159 H mg/dl
(70-99)
Calcium 6.4 L* mg/dl 6.4 L* mg/dl
(8.4-10.2) (8.4-10.2)
Ionized Calcium 0.76 L mMOL/L
(1.15-1.33)
Magnesium 0.6 L* mg/dl
(1.6-2.3)
AST 15 L U/L
(17-59)
Total Protein 5.9 L g/dl
(6.3-8.2)
Albumin 3.4 L g/dl
(3.5-5.0)
07/05/24 18:34
07/05/24 18:34
Vital Signs
Initial and Last Documented VS:
Initial Vital Signs
Temp Pulse Resp BP Pulse Ox
98.2 F 100 20 154/82 95
07/05/24 18:25 07/05/24 18:25 07/05/24 18:25 07/05/24 18:25 07/05/24 18:25
Last Documented Vital Signs
Temp Pulse Resp BP Pulse Ox
98.2 F 91 14 118/69 97
07/05/24 18:25 07/05/24 20:30 07/05/24 20:30 07/05/24 20:00 07/05/24 20:30
MDM/Problems Addressed
MDM/Problems Addressed:
Unclear underlying cause of the patient's depleted electrolytes, certainly he is at risk for this due to chronic kidney disease and use of diuretics however his lab parameters for creatinine and his dose of diuretics are unchanged from his last
hospital stay and the hypocalcemia is quite new. Due to prolonged QT the patient was aggressively repleted with IV calcium gluconate as well as IV magnesium. Patient is profoundly symptomatic and thus will admit to the hospitalist service
*Critical Care Note
Total Time (30-74mins, 75-104mins- exclusive of procedures): 30 minutes
comment:
Critical care time: 30 minutes
Critical care time was exclusive of: Separately billable procedures, treating other patients, and teaching time
Critical care was necessary to treat or prevent imminent or life-threatening deterioration of the following conditions: Hypocalcemia with EKG changes
Critical care time spent personally by me on the following activities:
[x] Review of old charts
[x] Obtaining history from patient or surrogate
[x] Ordering and review of the laboratory studies
[ ] Ordering and review of radiographic studies
[x] Ordering and performing treatments and interventions
[x] Patient patient's response to treatment
[x] Development of treatment plan with patient or surrogate
ED Attending Note
-
Portions of this chart may have been created with voice recognition software.� Occasional wrong word or��sound alike� substitutions may have occurred due to the inherent limitations of voice recognition software.
Discharge Plan
Departure
Patient Disposition: Admit
Date of Disposition: 07/05/24
Time of Disposition: 20:37
Admit to: Telemetry
Presentation/result/management discussed w/ accepting MD/DO: Hospitalist
Discharge Problem:
Hypocalcemia, Hypomagnesemia
Prescriptions:
No Action
glimepiride 4 MG tablet
4 mg PO DAILY
amlodipine 10 MG tablet
10 mg PO DAILY
montelukast [Singulair] 10 mg Tablet
10 mg PO HS
Primatene Mist 0.125 mg/actuation Hfa Aerosol Inhaler
1 puff INHALATION R Q4HPRN PRN (Reason: SOB)
pantoprazole 40 mg Tablet,Delayed Release (Dr/Ec)
40 mg PO DAILY Qty: 30 11RF
clopidogrel [Plavix] 75 mg tablet
75 mg PO DAILY Qty: 30 11RF
furosemide [Lasix] 40 mg Tablet
40 mg PO DAILY
metformin 500 mg Tablet
500 mg PO BID
acetaminophen 650 mg Tablet Extended Release
1,300 mg PO [id number] PRN (Reason: mild pain)
fluticasone propionate 50 mcg/actuation [place],Suspension
2 spray INTRANASAL BID
irbesartan 300 mg Tablet
300 mg PO DAILY
metoprolol succinate 25 mg tablet extended release 24 hr
25 mg PO BID
Rx Instructions:
take with 50mg tab for total of 75mg
atorvastatin 80 mg Tablet
80 mg PO DAILY
metoprolol succinate 50 mg Tablet Extended Release 24 Hr
50 mg PO BID
Rx Instructions:
take with 25mg for total of 75mg
aspirin 81 mg Tablet,Delayed Release (Dr/Ec)
81 mg PO DAILY
albuterol sulfate 90 mcg/actuation HFA aerosol inhaler
2 puff inhalation R Q6HPRN PRN (Reason: shortness of breath or wheezing)
Referrals:
Technical Support Agent-Christine Cox CRNP [Family Provider] -
Interventions
Interventions:
*Risk Screen - Suicide Last Done: 07/05/24 18:25
*General Assessment Last Done: 07/05/24 18:25
*Neglect/Abuse Screening Last Done: 07/05/24 19:34
*ED- Fall Risk Assessment Last Done: 07/05/24 19:34
*ED COVID-19 Vaccine History Last Done: 07/05/24 19:34
ED- Cardiac Assessment Last Done: 07/05/24 20:00
ED- Pulmonary Assessment Last Done: 07/05/24 20:00
ED-Skin Assessment Last Done: 07/05/24 20:00
Discharge Date and Time
Print Language: UKRAINIAN
[2024-07-05 20:20] LABS: Calcium 6.4 mg/dl (8.4-10.2)
[2024-07-05 20:23] LABS: Ionized Calcium 0.76 mMOL/L (1.15-1.33)
[2024-07-05 20:28] LABS: Vitamin D, 25-OH*** 44.4 ng/mL (30-80)
[2024-07-05] MEDS: MAGNESIUM SULFATE 50 IV (21:10)
--- NOTE | 2024-07-05 21:10 | HPS.HSE ---
Addendum entered and electronically signed by Fantasma Lambert MD 07/05/24 21:39:
Prolonged qtc secondary to hypomag. Recheck EKG in AM.
Original Note:
Family Physician
-
Family Physician: Christine Thomas
Chief Complaint
-
body aches
History of Present Illness
78-year-old male past medical history of COPD, CKD 3A, CAD status post stent last year, hypertension, type 2 diabetes, obesity, presenting for body aches, increased lower extreme edema. Over the past few days he has had bodyaches all over his body
and joint pains. He has pain in his thighs, neck. He chronically has lower extremity edema but this usually resolves with elevation of the legs. Over the past day the leg swelling not improved with elevation. He thinks he has gained 10 pounds
recently. He has some shortness of breath with exertion which is not new. Denies any cough. Denies chest pain.
He has been having diarrhea over the past few days this is resolved. He is eating normally.
Denies any recent new medications. He takes Lasix for edema and omeprazole. He denies any history of gastric bypass or colon resection.
He drinks alcohol only occasionally. Denies smoking.
Patient had influenza last month.
Medical History
Past Medical History
Past Medical History: Reports Other (COPD, CKD 3A, CAD status post stent last year, hypertension, type 2 diabetes, obesity,)
Past Surgical History: Reports None
Social History
Tobacco: Non-smoker
Alcohol: None
Drug: None
Family History
Family History: Not pertinent
Allergies / Home Medications
Allergies reflects when Allergies were last updated in [facility].
Home Medications with original date entered in [facility]
Allergy/Medication List:
Allergies
Allergy/AdvReac Type Severity Reaction Status Date / Time
grass pollen Allergy nasal Verified 07/05/24 18:26
congestion
pollen extracts Allergy nasal Verified 07/05/24 18:26
congestion
Home Medications
amlodipine 10 mg tablet 10 mg PO DAILY Blood Pressure 08/29/17
glimepiride 4 mg tablet 4 mg PO DAILY Diabetes 08/29/17
epinephrine 0.125 mg/actuation aerosol inhaler (Primatene Mist) 1 puff inhalation R Q4HPRN PRN SOB 09/03/22
montelukast 10 mg tablet (Singulair) 10 mg PO HS Allergies 09/03/22
clopidogrel 75 mg tablet (Plavix) 75 mg PO DAILY Heart disease/condition #30 tabs 05/14/23
pantoprazole 40 mg tablet,delayed release 40 mg PO DAILY Gastrointestinal issue #30 tabs 05/14/23
acetaminophen 650 mg tablet,extended release 1,300 mg PO [id number] PRN mild pain 06/05/24
fluticasone propionate 50 mcg/actuation nasal spray,suspension 2 spray intranasal BID Allergies 06/05/24
furosemide 40 mg tablet (Lasix) 40 mg PO DAILY Fluid Retention/Swelling 06/05/24
irbesartan 300 mg tablet 300 mg PO DAILY Blood Pressure 06/05/24
metformin 500 mg tablet 500 mg PO BID Diabetes 06/05/24
metoprolol succinate 25 mg tablet,extended release 24 hr 25 mg PO BID Heart disease/condition 06/05/24
albuterol sulfate 90 mcg/actuation aerosol inhaler 2 puff inhalation R Q6HPRN PRN shortness of breath or wheezing 07/05/24
aspirin 81 mg tablet,delayed release 81 mg PO DAILY 07/05/24
atorvastatin 80 mg tablet 80 mg PO DAILY 07/05/24
metoprolol succinate 50 mg tablet,extended release 24 hr 50 mg PO BID 07/05/24
Review of Systems
-
History Source: Patient
A 12 point ROS was completed and negative except as noted: Yes
Constitutional: Reports No Symptoms
EENT: Reports No Symptoms
Respiratory: Reports No Symptoms
Cardiac: Reports No Symptoms
Abdomen/GI: Reports No Symptoms
: Reports No Symptoms
Musculoskeletal: Reports See HPI
Skin: Reports No Symptoms
Neurological: Reports No Symptoms
Endocrine: Reports No Symptoms
Hematologic/Lymphatic: Reports No Symptoms
Psych: Reports No Symptoms
Physical Exam
Vital Signs
Vital Signs
Temp Pulse Resp BP Pulse Ox
98.2 F 91 14 118/69 97
07/05/24 18:25 07/05/24 20:30 07/05/24 20:30 07/05/24 20:00 07/05/24 20:30
Physical Exam
General: Well Developed, Well Nourished and No Apparent Distress
HEENT: NormoCephalic, Moist mucous membranes and Atraumatic
Respiratory: Clear
Cardiac: S1/S2 and Regular Rhythm; No Murmur or Rub
GI: Soft, Non Tender, Non Distended and Normal Bowel Sounds; No Organomegaly
Rectal: Deferred by Provider
Musculoskeletal: No Clubbing, No Cyanosis and No Edema
Skin: No Rash
Neuro: Nonfocal/grossly intact
Laboratory Results
-
07/05/24 18:34
07/05/24 18:34
Laboratory Results
Total Bilirubin 0.6 mg/dl (0.2-1.3) 07/05/24 18:34
AST 15 U/L (17-59) L 07/05/24 18:34
ALT 11 U/L (0-50) 07/05/24 18:34
Alkaline Phosphatase 90 U/L (38-126) 07/05/24 18:34
Data Reviewed
-
Lab Data: Labs Reviewed by me
Old Records: Reviewed
Impression/Plan
-
IMPRESSION:
PLAN:
# Body aches/muscle pain likely symptomatic hypocalcemia secondary to hypomagnesia
# Hypomagnesemia possibly secondary to Protonix/Lasix/recent diarrhea
-Magnesium, calcium repletion
-Vitamin D level normal
-PTH pending
-Hold PPI
-Check creatinine kinase, TSH
# Increased lower extremity/chronic dyspnea concerning for CHF
-Check chest x-ray, cardiac BNP
-Patient already taking 40 mg Lasix per day
# Recent diarrhea secondary to gastroenteritis
-Resolved
CKD 3
-Renal function at baseline
COPD
-Continue montelukast
CAD
-Continue aspirin, Plavix, statin
-Continue metoprolol
Essential hypertension
-Continue irbesartan, amlodipine
Type 2 diabetes
-Hold metformin, glimepiride
-Insulin sliding scale
Obesity
Chronic anemia
-Hemoglobin 9.9 from 11.4
Full code
DVT prophylaxis�heparin
Cardiac diet
[2024-07-05 23:55] LABS: Glucose - Point of Care 118 mg/dl (70-99)
[2024-07-06] VITALS (7 sets, daily range): BP systolic 100–135; BP diastolic 53–82; BMI 34.7; BMI 34.6
[2024-07-06] MEDS: TYLENOL 650 MG PO ×3 (00:26→16:53)
[2024-07-06] MEDS: SINGULAIR 10 MG PO ×2 (00:26→20:49)
[2024-07-06 00:48] LABS: Creatine Phosphokinase 76 U/L (55-170)
[2024-07-06 01:06] LABS: TSH Reflex To Free T4 3.06 uIU/ml (0.47-4.68)
[2024-07-06 07:24] LABS: % Basophils 0.6 % (0-2); % Eosinophils 3.6 % (0-6); % Immature Granulocytes 2.4 % (0-0.5); % Lymphocytes 22.1 % (20.5-51.1); % Monocytes 10.6 % (1.7-9.3); % Neutrophils 60.7 % (42.2-75.2); Absolute Basophils 0.1 10^3/uL (0-0.2); Absolute Eosinophils 0.5 10^3/uL (0-0.7); Absolute Immature Granulocytes 0.3 10^3/uL (0-0.05); Absolute Lymphocytes 2.8 10^3/uL (1.2-3.4); Absolute Monocytes 1.3 10^3/uL (0.1-0.6); Absolute Neutrophils 7.7 10^3/uL (1.4-6.5); Hematocrit 30.4 % (39.0-52.0); Hemoglobin 10.1 g/dL (13.0-18.0); Mean Corp Hgb Conc. 33.2 g/dL (33.0-37.0); Mean Corpuscular Volume 93.3 fL (80.0-94.0); Mean Platelet Volume 9.6 fL (7.4-10.4); Nucleated Red Blood Cells % 0 % (-); Platelet Count 325 10^3/uL (130-400); Red Blood Cell Count 3.26 10^6/uL (4.70-6.10); Red Cell Dist. Width 13.1 % (11.5-14.5); White Blood Cell Count 12.7 10^3/uL (4.8-10.8)
[2024-07-06] MEDS: LASIX 40 MG PO (07:55)
[2024-07-06] MEDS: HEPARIN 5000 UNITS SC ×2 (07:55→20:26)
[2024-07-06 07:56] LABS: ALT (SGPT) 10 U/L (0-50); AST (SGOT) 15 U/L (17-59); Albumin 3.3 g/dl (3.5-5.0); Alkaline Phosphatase 97 U/L (38-126); Blood Urea Nitrogen 25 mg/dl (9-20); Carbon Dioxide 26 mmol/L (22-30); Chloride 107 mmol/L (98-107); Estimated Creatinine Clearance 39 ml/min; Glucose 99 mg/dl (70-99); Sodium 141 mmol/L (135-145); Total Bilirubin 0.6 mg/dl (0.2-1.3); Total Protein 5.8 g/dl (6.3-8.2); eGFR 38.29
[2024-07-06] MEDS: ASPIR LOW (ENTERIC COATED) 81 MG PO (07:56)
[2024-07-06] MEDS: AVAPRO 300 MG PO (07:56)
[2024-07-06] MEDS: TOPROL XL 25 MG PO ×2 (07:56→20:27)
[2024-07-06] MEDS: TOPROL XL 50 MG PO ×2 (07:56→20:27)
[2024-07-06] MEDS: LIPITOR 80 MG PO (07:56)
[2024-07-06] MEDS: NORVASC 10 MG PO (07:56)
[2024-07-06] MEDS: PLAVIX 75 MG PO (07:56)
[2024-07-06 08:18] LABS: Glucose - Point of Care 208 mg/dl (70-99)
[2024-07-06] MEDS: MAGNESIUM SULFATE 100 IV (08:48)
[2024-07-06 08:54] LABS: Intact PTH 96.5 pg/ml (13.6-85.8)
[2024-07-06] MEDS: ROXICODONE 5 MG PO ×3 (08:54→18:26)
[2024-07-06 09:04] LABS: Ionized Calcium 0.84 mMOL/L (1.15-1.33)
[2024-07-06 09:23] LABS: Magnesium 1.1 mg/dl (1.6-2.3)
--- NOTE | 2024-07-06 11:32 | CM ---
Patient seen bedside, initial assessment completed. Patient is a 78-year-old male past medical history of COPD, CKD 3A, CAD status post stent last year, hypertension, type 2 diabetes, obesity, presenting for body aches, increased lower extreme edema.
Patient reports that he lives alone in a 2STH- 1 step to enter. Patient is independent w/ ambulating, no device required. Patient is independent w/ ADLs. Patient neb machine but does not use it daily, patient stated after his last admission last
month, he did use neb at home. Denies SNF/VN hx.
Address, points of contact and insurance verified
PCP: Christine Thomas. Patient shared that current PCP is no longer w/ the practice and went to [place] so patient is without a PCP at this time. Patient was given residency clinic information last admission and will be provided again if
needed.
Pharmacy: [facility]
Plan: Home; likely no needs
[2024-07-06 11:57] LABS: Glucose - Point of Care 195 mg/dl (70-99)
[2024-07-06] MEDS: NOVOLOG FLEXPEN-LOW RESISTANCE 1 UNITS SC (11:59)
[2024-07-06 12:17] LABS: COVID-19 Antigen Negative (Negative)
--- NOTE | 2024-07-06 12:53 | W.PN.HOSP.TC ---
Today's Communication/Plan
-
electrolyte repletion
f/u bmp, mag today
stop ppi
Assessment / Plan
Assessment / Plan
Physical Exam
General: Well Developed, Well Nourished and No Apparent Distress
HEENT: NormoCephalic, Moist mucous membranes and Atraumatic
Respiratory: Clear
Cardiac: S1/S2 and Regular Rhythm; No Murmur or Rub
GI: Soft, Non Tender, Non Distended and Normal Bowel Sounds; No Organomegaly
Rectal: Deferred by Provider
Musculoskeletal: No Clubbing, No Cyanosis and No Edema
Skin: No Rash
Neuro: Nonfocal/grossly intact
PLAN:
# Body aches/muscle pain likely symptomatic #hypocalcemia secondary to hypomagnesia
# Hypomagnesemia possibly secondary to Protonix/Lasix/recent diarrhea
-Magnesium, calcium repletion
-Vitamin D level normal
-PTH top normal
-Hold PPI
-Can cont lasix for now and monitor
-TSH WNL
# Increased lower extremity/chronic dyspnea
-resolved
-no evidence of fluid overload, bnp at baseline
-Continue lasix
-edema improving as per patient
# Recent diarrhea secondary to gastroenteritis
-Resolved
CKD 3
-Renal function at baseline
COPD
-Continue montelukast
CAD
-Continue aspirin, Plavix, statin
-Continue metoprolol
Essential hypertension
-Continue irbesartan, amlodipine
Type 2 diabetes
-Hold metformin, glimepiride
-Insulin sliding scale
Obesity
Chronic anemia
-Hemoglobin 9.9 from 11.4
Full code
DVT prophylaxis�heparin
Cardiac diet
Anticipated Discharge: 24 - 48 hours
Subjective/Interval History
-
Date of Service: July 06, 2024
no acute events, le improved as per patient
Objective Data
-
Labs:
Laboratory Results
07/06/24
06:34
WBC 12.7 H
Hgb 10.1 L
Hct 30.4 L
Plt Count 325
Sodium 141
Potassium 4.0
Chloride 107
Carbon Dioxide 26
BUN 25 H
Creatinine 1.8 H
Glucose 99
Calcium 7.0 L
Total Bilirubin 0.6
AST 15 L
ALT 10
Alkaline Phosphatase 97
Vital Signs:
Vital Signs
Temp Pulse Resp BP Pulse Ox
97.6 F 79 20 119/65 96
07/06/24 11:25 07/06/24 11:25 07/06/24 11:25 07/06/24 11:25 07/06/24 11:25
I&O
07/05/24 07/06/24 07/07/24
06:59 06:59 06:59
Intake Total 0 / 0
Balance 0 / 0
Review of Systems
-
History Source: Patient
All other systems: Not reviewed unless documented
Physical Exam
-
General: Well Developed and No Apparent Distress
HEENT: Normocephalic, Atraumatic and Moist Mucous Membranes
Respiratory: Clear to Auscultation
Cardiac: Regular Rhythm and S1/S2; Negative Murmur, Rub or Gallop
GI: Soft, Nontender, Nondistended and Normal Bowel Sounds; Negative Organomegaly
Rectal: Deferred by Provider
Musculoskeletal: No Clubbing, No Cyanosis and No Edema
Skin: Negative Rash
Neuro: Nonfocal/Grossly Intact
Data Reviewed
-
Diagnostic Radiology: Report Reviewed by me
Labs: Labs Reviewed by me
[2024-07-06] MEDS: CALCIUM GLUCONATE 290 MG IV (13:29)
[2024-07-06 16:49] LABS: Blood Urea Nitrogen 26 mg/dl (9-20); Calcium 8.5 mg/dl (8.4-10.2); Carbon Dioxide 25 mmol/L (22-30); Chloride 102 mmol/L (98-107); Estimated Creatinine Clearance 41 ml/min; Glucose 134 mg/dl (70-99); Magnesium 2.2 mg/dl (1.6-2.3); Potassium 4.5 mmol/L (3.5-5.1); Sodium 139 mmol/L (135-145); eGFR 41.01
[2024-07-06 16:52] LABS: Glucose - Point of Care 110 mg/dl (70-99)
[2024-07-06] MEDS: NOVOLOG FLEXPEN-LOW RESISTANCE SC (16:54)
--- NOTE | 2024-07-06 18:47 | W.PN.UPDATE ---
Update Note
Progress Note Update
QTc before Mg repletion prolonged due to hypomagnesemia. Patient received appropriate 4g of magnesium repletion, safe to administer one dose of Zofran while on tele
[2024-07-06] MEDS: ZOFRAN 4 MG IV (20:25)
[2024-07-06 21:14] LABS: Glucose - Point of Care 191 mg/dl (70-99)
[2024-07-07] VITALS (7 sets, daily range): BP systolic 105–146; BP diastolic 63–110; BMI 35.0
[2024-07-07] MEDS: LIDOCAINE 4% PATCH 1 PATCH TOPICAL (00:26)
[2024-07-07 07:15] LABS: Hematocrit 29.2 % (39.0-52.0); Hemoglobin 9.7 g/dL (13.0-18.0); Mean Corp Hgb Conc. 33.2 g/dL (33.0-37.0); Mean Corpuscular Hgb 31.1 pg (27.0-31.0); Mean Corpuscular Volume 93.6 fL (80.0-94.0); Mean Platelet Volume 9.4 fL (7.4-10.4); Platelet Count 321 10^3/uL (130-400); Red Blood Cell Count 3.12 10^6/uL (4.70-6.10); Red Cell Dist. Width 13.1 % (11.5-14.5); White Blood Cell Count 10.2 10^3/uL (4.8-10.8)
[2024-07-07 07:53] LABS: ALT (SGPT) < 10 U/L (0-50); AST (SGOT) 14 U/L (17-59); Alkaline Phosphatase 98 U/L (38-126); Blood Urea Nitrogen 27 mg/dl (9-20); Carbon Dioxide 27 mmol/L (22-30); Chloride 105 mmol/L (98-107); Estimated Creatinine Clearance 39 ml/min; Glucose 114 mg/dl (70-99); Potassium 4.7 mmol/L (3.5-5.1); Sodium 140 mmol/L (135-145); Total Bilirubin 0.7 mg/dl (0.2-1.3); Total Protein 5.4 g/dl (6.3-8.2); eGFR 38.29
[2024-07-07 08:06] LABS: Glucose - Point of Care 133 mg/dl (70-99)
[2024-07-07] MEDS: NOVOLOG FLEXPEN-LOW RESISTANCE SC (08:26)
[2024-07-07] MEDS: ROXICODONE 5 MG PO ×3 (08:29→20:18)
[2024-07-07] MEDS: TOPROL XL 25 MG PO ×2 (08:31→20:18)
[2024-07-07] MEDS: AVAPRO 300 MG PO (08:31)
[2024-07-07] MEDS: TOPROL XL 50 MG PO ×2 (08:31→20:18)
[2024-07-07] MEDS: LASIX 40 MG PO (08:31)
[2024-07-07] MEDS: LIPITOR 80 MG PO (08:32)
[2024-07-07] MEDS: PLAVIX 75 MG PO (08:32)
[2024-07-07] MEDS: ASPIR LOW (ENTERIC COATED) 81 MG PO (08:32)
[2024-07-07] MEDS: NORVASC 10 MG PO (08:32)
[2024-07-07] MEDS: HEPARIN 5000 UNITS SC ×2 (08:32→20:17)
[2024-07-07] MEDS: LASIX 40 MG IV (10:59)
[2024-07-07] MEDS: LIORESAL 5 MG PO ×2 (10:59→20:18)
[2024-07-07] MEDS: TYLENOL 650 MG PO ×2 (11:05→17:02)
[2024-07-07 12:03] LABS: Glucose - Point of Care 163 mg/dl (70-99)
[2024-07-07] MEDS: NOVOLOG FLEXPEN-LOW RESISTANCE 1 UNITS SC ×2 (12:07→16:52)
[2024-07-07 12:51] LABS: Ionized Calcium 1.02 mMOL/L (1.15-1.33)
--- NOTE | 2024-07-07 12:59 | W.PN.HOSP.TC ---
Today's Communication/Plan
-
iv lasix
calcium repletion
monitor electrolytes
baclofen
Assessment / Plan
Assessment / Plan
Physical Exam
General: Well Developed, Well Nourished and No Apparent Distress
HEENT: NormoCephalic, Moist mucous membranes and Atraumatic
Respiratory: Clear
Cardiac: S1/S2 and Regular Rhythm; No Murmur or Rub
GI: Soft, Non Tender, Non Distended and Normal Bowel Sounds; No Organomegaly
Rectal: Deferred by Provider
Musculoskeletal: No Clubbing, No Cyanosis and No Edema
Skin: No Rash
Neuro: Nonfocal/grossly intact
PLAN:
# Body aches/muscle pain likely symptomatic #hypocalcemia secondary to hypomagnesia
# Hypomagnesemia possibly secondary to Protonix/recent diarrhea
-Magnesium, calcium repletion�much improved
-Vitamin D level normal
-PTH top normal
-Stop PPI, no history of ulcers, GERD (has been getting medications from oxygen equipment aide, has no PCP at this time)
-Can cont lasix for now and monitor
-TSH WNL
# Increased lower extremityedema /chronic dyspnea
-give 1 dose IV lasix today
-no evidence of pulmonary congestion
-Continue lasix
-edema improving as per patient
# Recent diarrhea secondary to gastroenteritis
-Resolved
CKD 3
-Renal function at baseline
COPD
-Continue montelukast
CAD
-Continue aspirin, Plavix, statin
-Continue metoprolol
Essential hypertension
-Continue irbesartan, amlodipine
Type 2 diabetes
-Hold metformin, glimepiride
-Insulin sliding scale
Obesity
Chronic anemia
-Hemoglobin 9.9 from 11.4
Full code
DVT prophylaxis�heparin
Cardiac diet
Anticipated Discharge: Within 24 hours
Subjective/Interval History
-
Date of Service: July 07, 2024
Right-sided neck pain, presumed muscular
Objective Data
-
Labs:
Laboratory Results
07/07/24
06:38
WBC 10.2
Hgb 9.7 L
Hct 29.2 L
Plt Count 321
Sodium 140
Potassium 4.7
Chloride 105
Carbon Dioxide 27
BUN 27 H
Creatinine 1.8 H
Glucose 114 H
Calcium 8.0 L
Total Bilirubin 0.7
AST 14 L
ALT < 10
Alkaline Phosphatase 98
Vital Signs:
Vital Signs
Temp Pulse Resp BP Pulse Ox
98 F 85 18 134/83 95
07/07/24 11:25 07/07/24 11:25 07/07/24 11:25 07/07/24 11:25 07/07/24 11:25
I&O
07/06/24 07/07/24 07/08/24
06:59 06:59 06:59
Intake Total 0 / 0 1060 / 1060
Output Total 600 / 600
Balance 0 / 0 460 / 460
Review of Systems
-
History Source: Patient
All other systems: Not reviewed unless documented
Data Reviewed
-
Diagnostic Radiology: Report Reviewed by me
Labs: Labs Reviewed by me
[2024-07-07] MEDS: CALCIUM GLUCONATE 100 IV (13:30)
[2024-07-07 16:49] LABS: Glucose - Point of Care 160 mg/dl (70-99)
[2024-07-07] MEDS: MELATONIN 5 MG PO (20:18)
[2024-07-07] MEDS: SINGULAIR 10 MG PO (20:18)
[2024-07-07 20:54] LABS: Glucose - Point of Care 162 mg/dl (70-99)
[2024-07-08 03:10] VITALS: BP 140/89
[2024-07-08] MEDS: TYLENOL 650 MG PO ×2 (05:25→12:21)
[2024-07-08] MEDS: ROXICODONE 5 MG PO (05:26)
[2024-07-08 05:42] VITALS: BMI 34.8
[2024-07-08 07:05] VITALS: BP 112/62
[2024-07-08 07:35] LABS: Ionized Calcium 1.04 mMOL/L (1.15-1.33)
[2024-07-08 08:02] LABS: Glucose - Point of Care 120 mg/dl (70-99)
[2024-07-08 08:16] VITALS: BP 112/62
[2024-07-08 08:27] LABS: Hematocrit 29.7 % (39.0-52.0); Hemoglobin 9.7 g/dL (13.0-18.0); Mean Corp Hgb Conc. 32.7 g/dL (33.0-37.0); Mean Corpuscular Hgb 31.3 pg (27.0-31.0); Mean Corpuscular Volume 95.8 fL (80.0-94.0); Mean Platelet Volume 9.8 fL (7.4-10.4); Platelet Count 339 10^3/uL (130-400); Red Cell Dist. Width 13.1 % (11.5-14.5); White Blood Cell Count 10.8 10^3/uL (4.8-10.8)
[2024-07-08 09:13] LABS: ALT (SGPT) < 10 U/L (0-50); AST (SGOT) 13 U/L (17-59); Alkaline Phosphatase 95 U/L (38-126); Blood Urea Nitrogen 33 mg/dl (9-20); Calcium 8.1 mg/dl (8.4-10.2); Carbon Dioxide 25 mmol/L (22-30); Chloride 106 mmol/L (98-107); Estimated Creatinine Clearance 35 ml/min; Glucose 126 mg/dl (70-99); Magnesium 1.9 mg/dl (1.6-2.3); Sodium 139 mmol/L (135-145); Total Bilirubin 0.6 mg/dl (0.2-1.3); Total Protein 5.4 g/dl (6.3-8.2); eGFR 33.74
[2024-07-08] MEDS: NOVOLOG FLEXPEN-LOW RESISTANCE SC (09:18)
[2024-07-08] MEDS: LIPITOR 80 MG PO (09:22)
[2024-07-08] MEDS: AVAPRO 300 MG PO (09:22)
[2024-07-08] MEDS: TOPROL XL 50 MG PO (09:24)
[2024-07-08] MEDS: LASIX 40 MG PO (09:25)
[2024-07-08] MEDS: ASPIR LOW (ENTERIC COATED) 81 MG PO (09:25)
[2024-07-08] MEDS: TOPROL XL 25 MG PO (09:25)
[2024-07-08] MEDS: NORVASC 10 MG PO (09:25)
[2024-07-08] MEDS: LIORESAL 5 MG PO (09:25)
[2024-07-08] MEDS: PLAVIX 75 MG PO (09:26)
[2024-07-08] MEDS: HEPARIN 5000 UNITS SC (09:27)
[2024-07-08] MEDS: CALCIUM GLUCONATE 100 IV (09:36)
[2024-07-08 11:05] VITALS: BP 119/65
[2024-07-08 12:04] LABS: Glucose - Point of Care 198 mg/dl (70-99)
--- NOTE | 2024-07-08 12:08 | W.PN.HOSP.TC ---
Addendum entered and electronically signed by Joselo Arevalo MD 07/10/24 15:49:
[id number]
Original Note:
Today's Communication/Plan
-
stop ppi
f/u calcium, scr, magnesiu, potassium in 3 -5 days with pcp/nephrology
F/u PCP, Cardiology, nephrology outpt
Assessment / Plan
Assessment / Plan
Physical Exam
General: Well Developed, Well Nourished and No Apparent Distress
HEENT: NormoCephalic, Moist mucous membranes and Atraumatic
Respiratory: Clear
Cardiac: S1/S2 and Regular Rhythm; No Murmur or Rub
GI: Soft, Non Tender, Non Distended and Normal Bowel Sounds; No Organomegaly
Rectal: Deferred by Provider
Musculoskeletal: No Clubbing, No Cyanosis and No Edema
Skin: No Rash
Neuro: Nonfocal/grossly intact
PLAN:
# Body aches/muscle pain likely symptomatic #hypocalcemia secondary to hypomagnesia
# Hypomagnesemia possibly secondary to Protonix/recent diarrhea
-Magnesium, calcium repletion�much improved
-Vitamin D level normal
-PTH top normal
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
-Can cont lasix for now and monitor
-TSH WNL
-f/u cmp, mag in 3-5 days with pcp
# Increased lower extremity edema /chronic dyspnea
-give 1 dose IV lasix today
-no evidence of pulmonary congestion
-Continue lasix
-edema improving
-F/u Cards outpt
# Recent diarrhea secondary to gastroenteritis
-Resolved
CKD 3
-Renal function at baseline
-f/u renal outpt
COPD
-Continue montelukast
CAD
-Continue aspirin, Plavix, statin
-Continue metoprolol
Essential hypertension
-Continue irbesartan, amlodipine
Type 2 diabetes
-Hold metformin, glimepiride
-Insulin sliding scale
Obesity
Chronic anemia
-Hemoglobin 9.9 from 11.4
Full code
DVT prophylaxis�heparin
Cardiac diet
More than 30 minutes spent in discharge including
Final examination of the patient
Summarizing hospital stay
Instructions for continuing care to all relevant caregivers
Preparation of discharge records, prescriptions, and referral forms
Total time spent (37 in minutes):
Anticipated Discharge: Today
Subjective/Interval History
-
Date of Service: July 08, 2024
No acute events overnight
Objective Data
-
Labs:
Laboratory Results
07/08/24
07:14
WBC 10.8
Hgb 9.7 L
Hct 29.7 L
Plt Count 339
Sodium 139
Potassium 5.0
Chloride 106
Carbon Dioxide 25
BUN 33 H
Creatinine 2.0 H
Glucose 126 H
Calcium 8.1 L
Total Bilirubin 0.6
AST 13 L
ALT < 10
Alkaline Phosphatase 95
Vital Signs:
Vital Signs
Temp Pulse Resp BP Pulse Ox
98.2 F 79 16 119/65 95
07/08/24 11:05 07/08/24 11:05 07/08/24 11:05 07/08/24 11:05 07/08/24 11:05
I&O
07/07/24 07/08/24 07/09/24
06:59 06:59 06:59
Intake Total 1060 / 1060 480 / 480
Output Total 600 / 600
Balance 460 / 460 480 / 480
Review of Systems
-
History Source: Patient
All other systems: Not reviewed unless documented
Physical Exam
-
General: Well Developed and No Apparent Distress
HEENT: Normocephalic, Atraumatic and Moist Mucous Membranes
Respiratory: Clear to Auscultation
Cardiac: Regular Rhythm and S1/S2; Negative Murmur, Rub or Gallop
GI: Soft, Nontender, Nondistended and Normal Bowel Sounds; Negative Organomegaly
Rectal: Deferred by Provider
Musculoskeletal: No Clubbing, No Cyanosis and No Edema
Skin: Negative Rash
Neuro: Nonfocal/Grossly Intact
Data Reviewed
-
Diagnostic Radiology: Report Reviewed by me
Labs: Labs Reviewed by me
--- NOTE | 2024-07-08 12:11 | W.DS.TRANS ---
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
-
Discharge Instructions:
Discharge Diagnosis/Procedures # Body aches/muscle pain likely symptomatic #
hypocalcemia secondary to hypomagnesia
# Hypomagnesemia possibly secondary to Protonix/
recent diarrhea
# Increased lower extremityedema /chronic
dyspnea
Diet Low Fat,Low Cholesterol,Restrict fluids to 48 oz
,Diabetic, Carb Controlled
Blood Work cbc, cmp and magnesium in 3-5 days with PCP/
nephrology
Instructions:
Stand-Alone Forms:
Changes to Home Medications: Yes
Discharge Medications:
DC Medications w/original date entered in [facility]
amlodipine 10 mg tablet 10 mg PO DAILY Blood Pressure 08/29/17
glimepiride 4 mg tablet 4 mg PO DAILY Diabetes 08/29/17
epinephrine 0.125 mg/actuation aerosol inhaler (Primatene Mist) 1 puff inhalation R Q4HPRN PRN SOB 09/03/22
montelukast 10 mg tablet (Singulair) 10 mg PO HS Allergies 09/03/22
clopidogrel 75 mg tablet (Plavix) 75 mg PO DAILY Heart disease/condition #30 tabs 05/14/23
fluticasone propionate 50 mcg/actuation nasal spray,suspension 2 spray intranasal BID Allergies 06/05/24
furosemide 40 mg tablet (Lasix) 40 mg PO DAILY Fluid Retention/Swelling 06/05/24
irbesartan 300 mg tablet 300 mg PO DAILY Blood Pressure 06/05/24
metformin 500 mg tablet 500 mg PO BID Diabetes 06/05/24
metoprolol succinate 25 mg tablet,extended release 24 hr 25 mg PO BID Heart disease/condition 06/05/24
albuterol sulfate 90 mcg/actuation aerosol inhaler 2 puff inhalation R Q6HPRN PRN shortness of breath or wheezing 07/05/24
aspirin 81 mg tablet,delayed release 81 mg PO DAILY Blood Clot Prevention/Tx 07/05/24
atorvastatin 80 mg tablet 80 mg PO DAILY High Cholesterol 07/05/24
metoprolol succinate 50 mg tablet,extended release 24 hr 50 mg PO BID Heart Disease/Condition 07/05/24
acetaminophen 325 mg tablet 650 mg (2 x 325 mg) PO Q4HPRN PRN mild pain #0 tabs 07/08/24
Home Medication Changes
acetaminophen 325 mg tablet 650 mg (2 x 325 mg) PO Q4HPRN PRN mild pain #0 tabs 07/08/24
Stop PPI
Pending Results: No
[2024-07-08] MEDS: NOVOLOG FLEXPEN-LOW RESISTANCE 1 UNITS SC (12:19)
--- NOTE | 2024-07-08 12:51 | CM ---
Patient seen at bedside.
IMM explained & signed
Information given to patient for [facility] for PCP
PLAN: Home, no needs
brother to transport
== END 2024-07-08 13:49 | disposition home or self-care (01) | DRG 641 ==
LOC: 4 EAST ACU 21:20
PROVIDERS: Emergency Medicine; Physician Assistant; ADMITTING PHYSICIAN Hospitalist; ATTENDING PHYSICIAN Internal Medicine; EMERGENCY PHYSICIAN Emergency Medicine; FAMILY PHYSICIAN Nurse Practitioner Family
DX: E83.42 Hypomagnesemia (principal); K52.9 Noninfective gastroenteritis and colitis, unspecified; R60.0 Localized edema; N18.31 Chronic kidney disease, stage 3a; E11.22 Type 2 diabetes mellitus with diabetic chronic kidney disease; I12.9 Hypertensive chronic kidney disease with stage 1 through stage 4 chronic kidney disease, or unspecified chronic kidney disease; E83.51 Hypocalcemia; J44.9 Chronic obstructive pulmonary disease, unspecified; R94.31 Abnormal electrocardiogram [ECG] [EKG]; E66.9 Obesity, unspecified; K21.9 Gastro-esophageal reflux disease without esophagitis; I25.10 Atherosclerotic heart disease of native coronary artery without angina pectoris; D64.9 Anemia, unspecified; M54.9 Dorsalgia, unspecified; Z60.2 Problems related to living alone; Z85.46 Personal history of malignant neoplasm of prostate; Z92.3 Personal history of irradiation; Z87.01 Personal history of pneumonia (recurrent); Z79.84 Long term (current) use of oral hypoglycemic drugs; Z79.51 Long term (current) use of inhaled steroids; Z79.82 Long term (current) use of aspirin; Z79.02 Long term (current) use of antithrombotics/antiplatelets; Z87.891 Personal history of nicotine dependence; Z68.34 Body mass index [BMI] 34.0-34.9, adult; Z11.52 Encounter for screening for COVID-19
CPT/HCPCS: 71046; 80048; 80053; 82306; 82330; 82550; 82962; 83735; 83880; 83970; 84100; 84443; 85025; 85027; 87502; 87811; 93005; 96374; 99285

== ENCOUNTER 2024-07-11 15:19 | Emergency (ER) | payer MEDICARE, OTHER, SELFPAY ==
[2024-07-11 15:29] VITALS: BP 134/78
[2024-07-11 15:58] LABS: % Basophils 0.5 % (0-2); % Eosinophils 0.2 % (0-6); % Immature Granulocytes 1.8 % (0-0.5); % Lymphocytes 10.4 % (20.5-51.1); % Monocytes 6.4 % (1.7-9.3); % Neutrophils 80.7 % (42.2-75.2); Absolute Basophils 0.1 10^3/uL (0-0.2); Absolute Immature Granulocytes 0.3 10^3/uL (0-0.05); Absolute Monocytes 1.2 10^3/uL (0.1-0.6); Absolute Neutrophils 15.1 10^3/uL (1.4-6.5); Hematocrit 33.4 % (39.0-52.0); Hemoglobin 10.9 g/dL (13.0-18.0); Mean Corp Hgb Conc. 32.6 g/dL (33.0-37.0); Mean Corpuscular Hgb 31.2 pg (27.0-31.0); Mean Corpuscular Volume 95.7 fL (80.0-94.0); Mean Platelet Volume 9.4 fL (7.4-10.4); Nucleated Red Blood Cells % 0 % (-); Platelet Count 425 10^3/uL (130-400); Red Blood Cell Count 3.49 10^6/uL (4.70-6.10); Red Cell Dist. Width 13.3 % (11.5-14.5); White Blood Cell Count 18.7 10^3/uL (4.8-10.8)
[2024-07-11 16:19] LABS: Lactic Acid 1.9 mmol/L (0.7-2.0)
[2024-07-11 16:26] LABS: NT-proBNP 1150 pg/ml; Troponin I < 0.012 ng/ml
[2024-07-11 17:01] LABS: Chloride 106 mmol/L (98-107); Potassium 5.2 mmol/L (3.5-5.1); Sodium 141 mmol/L (135-145)
[2024-07-11 17:02] LABS: ALT (SGPT) 15 U/L (0-50); AST (SGOT) 19 U/L (17-59); Albumin 3.8 g/dl (3.5-5.0); Alkaline Phosphatase 101 U/L (38-126); Blood Urea Nitrogen 40 mg/dl (9-20); Calcium 10.2 mg/dl (8.4-10.2); Carbon Dioxide 26 mmol/L (22-30); Glucose 175 mg/dl (70-99); Lipase 120 U/L (23-300); Total Bilirubin 0.7 mg/dl (0.2-1.3); Total Protein 6.4 g/dl (6.3-8.2); eGFR 41.01
[2024-07-11 18:00] VITALS: BP 130/85
--- NOTE | 2024-07-11 18:52 | ED.GENMED ---
History of Present Illness
General
Chief Complaint: Cold/Flu/URI Symptoms
Time Seen by Provider: 07/11/24 18:38
History of Present Illness
History of Present Illness:
78-year-old male presents to the emergency department for evaluation of continued neck pain as well as shortness of breath with exertion. Patient was admitted to this hospital last week for hypocalcemia and hypomagnesemia that was felt to be due to
diarrhea and PPI use. PPI was discontinued at time of hospital discharge. States he feels the symptoms are similar, reports generalized bodyaches and nausea without vomiting. Also reports a mild dry cough. No current chest pain or shortness of
breath at rest. No fevers or chills
Past History
Past History
ED Past Medical History: Cancer (Prostate CA with Radiation), COPD, GERD, HTN, NIDDM and Other (PNA, Hernia, Back pain, )
ED Past Surgical History: Tonsilectomy and Other (Brain Tumor removed, facial reconstruction after dog bite, Hernia repair)
Social History
Tobacco: Former smoker
Alcohol: Occasional
Drug: None
Personal:
Living: alone
Employment: Retired
Family History
Family History: Other (Patient's brother has had angioneurotic edema from IVY inhibitor use.)
Review of Systems
Review of Systems
Allergies reviewed?: Yes
All Other Systems: ROS reviewed and negative except as documented in HPI and ROS
Phy Exam
Physical Exam
Physical Exam:
GEN: Well appearing, NAD, WDWN
Eyes: PERRLA, EOMs intact, no scleral icterus
HENT: NCAT, oral mucosa moist, no JVD, no cervical adenopathy. No reproducible tenderness to the paraspinous cervical musculature or midline cervical spine. Range of motion of the C-spine is normal with no obvious pain response
Lungs: Normal respiratory effort coarse expiratory rhonchi heard throughout all lung aldana
Cardiac: RRR, no M/R/G, no peripheral edema. Radial pulses 2+ bilat
Abdomen: S, NT, ND, NABS, no masses or hepatosplenomegaly
Neuro: AO x 3, no focal deficits to BUE/BLE, normal sensation throughout
MSK: No gross deformity or ecchymosis. No edema. No digital clubbing
Skin: No rashes, petechiae. Normal color, no pallor or jaundice.
Psych: Calm, cooperative, proper hygiene
Course
Orders/Labs/Results
Orders:
Orders
07/11/24 15:32
CR Chest - 2 Views Urgent
Comment:
Reason For Exam: SOB
07/11/24 15:35
ECG [Electrocardiogram (*1)] Urgent
Reason for Study: Shortness of Breath
EKG- Treatment ONCE
07/11/24 15:50
Complete Blood Count/With Diff Urgent
Comprehensive Metabolic Panel Urgent
Lipase Urgent
Magnesium Urgent
Comment: ADD ON
NT-proBNP Urgent
Troponin I Urgent
07/11/24 15:51
Lactic Acid Urgent
07/11/24 18:52
Add On- LAB Urgent
Tests Added?: magnesium
Ipratropium/Albuterol Sulfate [Duoneb] 3 ml INH R NOW ONE
07/11/24 20:51
COVID-19 Antigen Urgent
Source: Nasal Swab
Influenza A+B Rapid Molecular Urgent
KITTY Source: Nasal Swab
Specimen Description:
07/11/24 21:01
Hydrocodone 5/APAP 325 [[place] 5/325] 1 tablet PO NOW STA
Abnormal Lab Results
07/11/24
15:50
WBC 18.7 H 10^3/uL
(4.8-10.8)
RBC 3.49 L 10^6/uL
(4.70-6.10)
Hgb 10.9 L g/dL
(13.0-18.0)
Hct 33.4 L %
(39.0-52.0)
MCV 95.7 H fL
(80.0-94.0)
MCH 31.2 H pg
(27.0-31.0)
MCHC 32.6 L g/dL
(33.0-37.0)
Plt Count 425 H D 10^3/uL
(130-400)
Abs Immat Gran (auto) 0.3 H 10^3/uL
(0-0.05)
Absolute Neuts (auto) 15.1 H 10^3/uL
(1.4-6.5)
Absolute Monos (auto) 1.2 H 10^3/uL
(0.1-0.6)
Immature Gran % 1.8 H %
(0-0.5)
Neutrophils % 80.7 H %
(42.2-75.2)
Lymphocytes % 10.4 L %
(20.5-51.1)
Potassium 5.2 H mmol/L
(3.5-5.1)
BUN 40 H mg/dl
(9-20)
Creatinine 1.7 H mg/dL
(0.7-1.3)
Glucose 175 H mg/dl
(70-99)
Magnesium 1.4 L mg/dl
(1.6-2.3)
07/11/24 15:50
07/11/24 15:50
Vital Signs
Initial and Last Documented VS:
Initial Vital Signs
Temp Pulse Resp BP Pulse Ox
98.2 F 94 20 134/78 99
07/11/24 15:29 07/11/24 15:29 07/11/24 15:29 07/11/24 15:29 07/11/24 15:29
Last Documented Vital Signs
Temp Pulse Resp BP Pulse Ox
98.3 F 93 20 140/64 97
07/11/24 18:00 07/11/24 18:56 07/11/24 18:56 07/11/24 18:56 07/11/24 18:56
MDM/Problems Addressed
MDM/Problems Addressed:
The trigger for the patient's neck pain is not clear at this time. Certainly seems mechanical or musculoskeletal as he reports essentially no pain at rest. He has no meningismus suggesting LP would be warranted. He has no extremity paresthesias
suggesting critical spinal pathology. Given that he cannot take NSAIDs due to CKD and antiplatelet use we will trial a course of steroids for this. In regards to his shortness of breath this may be a COPD exacerbation, there is no evidence of
pneumonia on chest x-ray however the patient does have significant leukocytosis when compared to admission last week thus we will treat him empirically with antibiotics particularly given the rhonchi on lung sounds
*Critical Care Note
Total Time (30-74mins, 75-104mins- exclusive of procedures): Not Applicable
ED Attending Note
-
Portions of this chart may have been created with voice recognition software.� Occasional wrong word or��sound alike� substitutions may have occurred due to the inherent limitations of voice recognition software.
Discharge Plan
Departure
Patient Disposition: Home (Routine Discharge)
Date of Disposition: 07/11/24
Time of Disposition: 21:24
Patient with high blood pressure during this ER visit?: No
Discharge Problem:
Musculoskeletal neck pain, Shortness of breath, Leukocytosis
Instructions: Neck pain - ED discharge instructions
Prescriptions:
New
methylprednisolone [Medrol (Rey)] 4 mg tablets,dose pack
See Rx Instructions .ROUTE .COMPLEX Qty: 21 0RF
Rx Instructions:
orally per package directions
doxycycline hyclate 100 mg tablet
100 mg PO BID 5 Days Qty: 10 0RF
No Action
glimepiride 4 MG tablet
4 mg PO DAILY
amlodipine 10 MG tablet
10 mg PO DAILY
montelukast [Singulair] 10 mg Tablet
10 mg PO HS
Primatene Mist 0.125 mg/actuation Hfa Aerosol Inhaler
1 puff INHALATION R Q4HPRN PRN (Reason: SOB)
clopidogrel [Plavix] 75 mg tablet
75 mg PO DAILY Qty: 30 11RF
furosemide [Lasix] 40 mg Tablet
40 mg PO DAILY
metformin 500 mg Tablet
500 mg PO BID
fluticasone propionate 50 mcg/actuation [place],Suspension
2 spray INTRANASAL BID
irbesartan 300 mg Tablet
300 mg PO DAILY
metoprolol succinate 25 mg tablet extended release 24 hr
25 mg PO BID
Rx Instructions:
take with 50mg tab for total of 75mg
atorvastatin 80 mg Tablet
80 mg PO DAILY
metoprolol succinate 50 mg Tablet Extended Release 24 Hr
50 mg PO BID
Rx Instructions:
take with 25mg for total of 75mg
aspirin 81 mg Tablet,Delayed Release (Dr/Ec)
81 mg PO DAILY
albuterol sulfate 90 mcg/actuation HFA aerosol inhaler
2 puff inhalation R Q6HPRN PRN (Reason: shortness of breath or wheezing)
acetaminophen 325 mg Tablet
650 mg PO Q4HPRN PRN (Reason: mild pain) Qty: 0 0RF
Referrals:
UNKNOWN - PT DOES,NOT KNOW [Family Provider] -
Interventions
Interventions:
*General Assessment Last Done: 07/11/24 15:29
*Neglect/Abuse Screening Last Done: 07/11/24 19:21
*ED- Fall Risk Assessment Last Done: 07/11/24 18:54
*ED COVID-19 Vaccine History Last Done: 07/11/24 18:54
ED- Pulmonary Assessment Last Done: 07/11/24 19:39
Discharge Date and Time
Print Language: [facility]
[2024-07-11 18:56] VITALS: BP 140/64
[2024-07-11] MEDS: DUONEB 3 ML INH (19:48)
[2024-07-11 20:37] LABS: Magnesium 1.4 mg/dl (1.6-2.3)
[2024-07-11 21:13] LABS: COVID-19 Antigen Negative (Negative)
[2024-07-11] MEDS: NORCO 5/325 1 TABLET PO (22:00)
== END 2024-07-11 22:53 | disposition home or self-care (01) ==
LOC: EMR 15:19
PROVIDERS: Physician Assistant; Student in an Organized Health Care Education/Training Program; EMERGENCY PHYSICIAN Emergency Medicine
DX: M54.2 Cervicalgia (principal); D72.829 Elevated white blood cell count, unspecified; N18.9 Chronic kidney disease, unspecified; E83.51 Hypocalcemia; E83.42 Hypomagnesemia; R19.7 Diarrhea, unspecified; J44.9 Chronic obstructive pulmonary disease, unspecified; K21.9 Gastro-esophageal reflux disease without esophagitis; I12.9 Hypertensive chronic kidney disease with stage 1 through stage 4 chronic kidney disease, or unspecified chronic kidney disease; E11.22 Type 2 diabetes mellitus with diabetic chronic kidney disease; Z85.46 Personal history of malignant neoplasm of prostate; Z87.891 Personal history of nicotine dependence
CPT/HCPCS: 99283; 94640; 71046; 80053; 83605; 83690; 83735; 83880; 84484; 85025; 87502; 87811; 93005